=== PATIENT | male | born 1960 | race Caucasian/White ===

== ENCOUNTER 2020-02-09 06:42 | Inpatient (IN) | payer BC, OTHER ==
[2020-02-09] MEDS ORDERED: FAMOTIDINE INJ/PF 20 MG/2 ML SDV IV ONE (07:03)
[2020-02-09] MEDS ORDERED: PROCHLORPERAZINE EDISYLATE INJ 10 MG/2 ML VIAL IV ONE (07:04)
--- NOTE | 2020-02-09 07:11 | ER Document Report ---
ED General - General Chief Complaint: Chest Pain Stated Complaint: CHEST PAIN Time Seen by Provider: 02/09/20 06:55 Primary Care Provider: VALE FATIMA MD [HONORARY] - Follow up as needed - [facility] Notes: Chief complaint: Chest pain, nausea and vomiting History of present illness: 59-year-old male diabetic on insulin presents with 24-hour history of burning discomfort epigastric and central chest associated with multiple episodes of nausea/vomiting. He has been able unable to keep anything down. has been checking fingerstick glucose values at home and says that he is not been able to eat or drink anything but has maintained sugars "within normal range". Denies shortness of breath. He has been followed by car lot attendant but is never had a myocardial infarction. CAD risk factors include: Family history of CAD, diabetes mellitus, hypertension and hyperlipidemia. He is a non-smoker. Most recent hemoglobin A1c determination was 7.1 per his primary care physician. Patient had surgery in childhood for reimplantation of ureters bilaterally. Denies any current urinary symptoms. No other major surgery. HEART Score: HISTORY 1 ECG 1 AGE 1 RISK FACTORS 2 TROPONIN 0 TOTAL: 5 - Related Data Allergies/Adverse Reactions: No Known Allergies Allergy (Verified 05/31/12 14:53) Home Medications: Current medications include insulin, metoprolol XL 25 mg daily, metformin 500 mg twice daily, atorvastatin 20 mg daily, lisinopril 20 mg daily and aspirin 81 mg daily Past Medical History - General Information source: Patient, Relative, [facility] Records - Social History Smoking Status: Never Smoker Frequency of alcohol use: None Drug Abuse: None Family History: CAD - Past Medical History Cardiac Medical History: Denies: Hx Coronary Artery Disease, Hx Hypertension Pulmonary Medical History: Reports: None Denies: Hx Tuberculosis Neurological Medical History: Reports: None Endocrine Medical History: Reports: Hx Diabetes Mellitus Type 2 Renal/ Medical History: Reports: Other - See HPI GI Medical History: Reports: Hx Gastroesophageal Reflux Disease, Hx Hiatal Hernia - 10-15 yrs ago Traumatic Medical History: Reports: Hx Fractures - hand, ankle Past Surgical History: Reports: Other - 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 Denies: Hx Pacemaker, Hx Tonsillectomy - Immunizations Hx Diphtheria, Pertussis, Tetanus Vaccination: Yes - 05/31/12 Review of Systems - Review of Systems Notes: Constitutional: Negative for fever. HENT: Negative for sore throat. Eyes: Negative for visual changes. Cardiovascular: As per HPI. Respiratory: Negative for shortness of breath. Gastrointestinal: As per HPI. Genitourinary: Negative for dysuria. Musculoskeletal: Negative for back pain. Skin: Negative for rash. Neurological: Negative for headaches, focal weakness or numbness. 10 point ROS negative except as marked above and in HPI. Physical Exam - Vital signs Vitals: Resp BP Pulse Ox 19 163/83 H 97 02/09/20 07:00 02/09/20 07:00 02/09/20 07:00 - Notes Notes: GENERAL: Male patient of approximately stated age who is actively vomiting. SKIN: Pale and dry. Good turgor no rashes. HEAD: Normocephalic atraumatic. EYES: PERRLA. EOMI. Conjunctivae and sclerae clear. EARS: CANALS AND TMS CLEAR. NOSE: CLEAR. MOUTH: Dry oral mucosa. Good dentition. No stridor or edema. No drooling. NECK: Supple. No masses or thyromegaly. No adenopathy. Carotids 2+ without bruits. No JVD. BACK: Symmetrical without tenderness. CHEST: Respirations unlabored. Breath sounds clear and symmetrical. HEART: Regular rhythm. No murmur gallop or rub. ABDOMEN: Soft nontender without masses, organomegaly or rebound. Bowel sounds hyperactive. No bruits. GENITALIA: Deferred. EXTREMITIES: No edema. No calf tenderness. Cap refill less than 1.5 seconds. Dorsalis pedis and posterior tibial pulses 3+ and symmetrical. NEUROLOGICAL: GCS 15. Alert and oriented x3. Fluent speech. Cranial nerves II through XII intact. Sensorimotor and cerebellar normal. Normal tone. PSYCHIATRIC: Anxious affect. Course - Re-evaluation Re-evalutation: 02/09/20 10:29 Patient did not show any ST changes to suggest an acute PR but he had peaking of T waves suggestive of hyperkalemia. We subsequently got back his chemistry values found he was hypoglycemic with a blood sugar of 65. He also had findings of acute kidney injury with a creatinine in excess of 9 and a BUN in the 60s. His K was critically high at 8.1 his bicarb was less than 5. White count elevated in excess 21,000 with a left shift. No clear-cut source of sepsis. His level was approximately 16. Prince catheter was placed and patient had no obvious urinary retention. His urine is microscopically unremarkable but has been cultured. Chest x-ray showed no infiltrates. He has a benign abdomen to exam. A noncontrast CT of abdomen and pelvis suggested some inflammatory change around the right kidney. There was no obvious obstruction. Troponin normal. Critical hyperkalemia was treated with glucose insulin, bicarbonate IV and calcium gluconate IV. Consultation obtained from nephrology Dr. Pérez for emergency dialysis. Consultation obtained from Dr. Goodwin from general surgery for placement of dialysis access. Case findings reviewed with Dr. Morocho from ICU who accepts patient for admission at this time. Findings, clinical impression and plan of treatment have been discussed with patient/family. Understanding of current findings and recommendations has been acknowledged by them and there is agreement regarding disposition and follow-up. - Vital Signs Vital signs: Temp Pulse Resp BP Pulse Ox 93.8 F L 23 H 144/64 H 97 02/09/20 10:00 02/09/20 10:00 02/09/20 08:00 02/09/20 10:00 - Laboratory Result Diagrams: 02/09/20 07:05 02/09/20 08:53 Laboratory results interpreted by me: 02/09/20 02/09/20 02/09/20 07:05 07:05 08:53 WBC 23.6 H Seg Neuts % (Manual) 81 H Band Neutrophils % 1 L Lymphocytes % (Manual) 7 L Abs Neuts (Manual) 19.4 H Abs Monocytes (Manual) 2.4 H Potassium 8.0 H* Carbon Dioxide < 5 L* BUN 60 H Creatinine 9.92 H Est GFR ( Amer) 7 L Est GFR (MDRD) Non-Af 5 L Glucose 63 L Lactic Acid Magnesium 3.3 H Creatine Kinase 45 L CK-MB (CK-2) Urine Protein Urine Ketones Urine Blood Urine Ascorbic Acid 02/09/20 02/09/20 02/09/20 08:53 08:53 08:53 WBC Seg Neuts % (Manual) Band Neutrophils % Lymphocytes % (Manual) Abs Neuts (Manual) Abs Monocytes (Manual) Potassium Carbon Dioxide BUN Creatinine Est GFR ( Amer) Est GFR (MDRD) Non-Af Glucose Lactic Acid 18.0 H Magnesium Creatine Kinase CK-MB (CK-2) 5.53 H Urine Protein 100 H Urine Ketones 20 H Urine Blood SMALL H Urine Ascorbic Acid 20 H - EKG Interpretation by Me Additional EKG results interpreted by me: 02/09/20 07:14 Twelve-lead EKG reviewed by me contemporaneously: 0650 hrs. Indication for study: Chest pain/vomiting Rhythm: Sinus tachycardia Rate: 102 Intervals: Normal QRS axis: -[address]/T wave changes: No ST shift. Peaking of T waves suggestive of possible hyperkalemia. Comparison with prior tracing: None available Interpretation: Abnormal EKG with peaking of T waves and left anterior fascicular block 02/09/20 07:32 Repeat EKG #2 obtained at 0721 hrs. Twelve-lead EKG reviewed by me contemporaneously: 0721 hrs. Indication for study: Chest pain Rhythm: Sinus tachycardia Rate: 110 Intervals: Normal QRS axis: -[address]/T wave changes: Persistent peaking of T waves. No ST elevation or depression Comparison with prior tracing: Compared with earlier study from 0650 hrs. there is persistent peaking of the T waves and previously noted left anterior fascicul ar block. Interpretation: Abnormal EKG with peaking of T waves and left anterior fascicular block. Critical Care Note - Critical Care Note Total time excluding time spent on procedures (mins): 65 - Treatment of critical hyperkalemia. Nephrology consultation for urgency dialysis. Initiation of sepsis protocol. Discharge - Discharge Clinical Impression: Acute kidney injury, Hyperkalemia, sepsis Clinical Impression: (Ruled Out): Sepsis Condition: Critical Disposition: ADMITTED INPATIENT Admitting Provider: Bailee (General Assembler Installer) Unit Admitted: ICU Referrals: VALE FATIMA MD [HONORARY] - Follow up as needed
[2020-02-09] MEDS: NORMAL SALINE 1000 ML 1,000 ML IV PRN ×2 (07:15→09:34)
--- NOTE | 2020-02-09 07:27 | EKG REPORT ---
SEVERITY:- ABNORMAL ECG - SINUS TACHYCARDIA LEFT ANTERIOR FASCICULAR BLOCK : Confirmed by: Janes Mann MD 09-Feb-2020 07:27:04
[2020-02-09 07:43] LABS: HEMATOCRIT 45.5 % (37.9-51.0); MEAN CORPUSCULAR HEMOGLOBIN 31.8 pg (27.0-33.4); MEAN CORPUSCULAR HGB CONC 32.8 g/dL (32.0-36.0); MEAN CORPUSCULAR VOLUME 97 fl (80-97); PLATELET COUNT 412 10^3/uL (150-450); RED CELL DISTRIBUTION WIDTH 13.6 % (11.5-14.0); WHITE BLOOD COUNT 23.6 10^3/uL (4.0-10.5)
[2020-02-09] MEDS ORDERED: METOPROLOL TARTRATE PF/INJ 5 MG/5 ML SDV IV ONE (07:45)
--- NOTE | 2020-02-09 08:07 | RADIOLOGY REPORT (SQ) ---
EXAM DESCRIPTION: CHEST SINGLE VIEW IMAGES COMPLETED DATE/TIME: 02/09/2020 6:33 am REASON FOR STUDY: CP COMPARISON: None. EXAM PARAMETERS: NUMBER OF VIEWS: One view. TECHNIQUE: Single frontal radiographic view of the chest acquired. RADIATION DOSE: NA LIMITATIONS: None. FINDINGS: LUNGS AND PLEURA: No opacities, masses or pneumothorax. No pleural effusion. MEDIASTINUM AND HILAR STRUCTURES: No masses. Contour normal. HEART AND VASCULAR STRUCTURES: Heart normal in size. Normal vasculature. BONES: No acute findings. HARDWARE: None in the chest. OTHER: No other significant finding. IMPRESSION: NO ACUTE RADIOGRAPHIC FINDING IN THE CHEST. TECHNICAL DOCUMENTATION: JOB ID: [id number] 2010 [employer]- All Rights Reserved Reading location - IP/workstation name: [email or web address]
[2020-02-09 08:12] LABS: ABSOLUTE LYMPHOCYTES# (MANUAL) 1.9 10^3/uL (0.5-4.7); ABSOLUTE MONOCYTES # (MANUAL) 2.4 10^3/uL (0.1-1.4); BAND NEUTROPHILS % (MANUAL) 1 % (3-5); BASOPHILS % (MANUAL) 0 % (0-2); EOSINOPHILS % (MANUAL) 0 % (0-6); INTERNATIONAL RATION (INR) 1.18; LYMPHOCYTES % (MANUAL) 7 % (13-45); MONOCYTES % (MANUAL) 10 % (3-13); PARTIAL THROMBOPLASTIN TIME 27.8 SEC (23.5-35.8); PROTHROMBIN TIME 15.2 SEC (11.4-15.4); SEGMENTED NEUTROPHILS % (MAN) 81 % (42-78); TOTAL CELLS COUNTED 100
[2020-02-09 08:13] LABS: PAPPENHEIMER BODIES PRESENT; POLYCHROMASIA SLIGHT
[2020-02-09 08:14] LABS: PLATELET COMMENT ADEQUATE; PLATELET LARGE PRESENT
[2020-02-09] MEDS ORDERED: MORPHINE SULFATE 10 MG/ML INJ IV ONE (08:24)
[2020-02-09] MEDS ORDERED: IMIPENEM/CILASTATIN SODIUM INJ 500 MG VIAL IV ONE (08:40)
[2020-02-09 09:33] LABS: ALBUMIN 4.2 g/dL (3.5-5.0); ALKALINE PHOSPHATASE 47 U/L (38-126); ASPARTATE AMINO TRANSFERASE 38 U/L (17-59); BILIRUBIN,DIRECT 0.4 mg/dL (0.0-0.4); BILIRUBIN,TOTAL 0.6 mg/dL (0.2-1.3); BLOOD UREA NITROGEN 60 mg/dL (7-20); CALCIUM 9.6 mg/dL (8.4-10.2); CHLORIDE 98 mmol/L (98-107); CREATINE KINASE 45 U/L (55-170); TOTAL PROTEIN 6.5 g/dL (6.3-8.2)
[2020-02-09 09:34] LABS: APPEARANCE,URINE SLIGHTLY-CLOUDY; BILIRUBIN,URINE NEGATIVE (NEGATIVE); COLOR,URINE YELLOW; GLUCOSE, URINE NEGATIVE (NEGATIVE); KETONES,URINE 20 mg/dL (NEGATIVE); PROTEIN,URINE 100 mg/dL (NEGATIVE); URINE SPECIFIC GRAVITY 1.011; UROBILINOGEN,URINE NEGATIVE mg/dL (<2.0)
--- NOTE | 2020-02-09 09:37 | RADIOLOGY REPORT (SQ) ---
EXAM DESCRIPTION: CT ABD/PELVIS NO ORAL OR IV IMAGES COMPLETED DATE/TIME: 02/09/2020 9:15 am REASON FOR STUDY: ARF COMPARISON: None. TECHNIQUE: CT scan of the abdomen and pelvis performed without intravenous or oral contrast. Images reviewed with lung, soft tissue, and bone windows. Reconstructed coronal and sagittal MPR images revi ewed. All images stored on PACS. All CT scanners at this facility use dose modulation, iterative reconstruction, and/or weight based d osing when appropriate to reduce radiation dose to as low as reasonably achievable (ALARA). [facility]: Dose Right [facility]: CareDose [facility]: Dose Right [facility]: Teradose 4D [facility]: Smart [employer] Software RADIATION DOSE: CT Rad equipment meets quality standard of care and radiation dose reduction techniq ues were employed. CTDIvol: 11.2 mGy. DLP: 666 mGy-cm.mGy. LIMITATIONS: None. FINDINGS: LOWER CHEST: Right lung base atelectasis likely due to discomfort with deep inspiration. NON-CONTRASTED LIVER, SPLEEN, ADRENALS: Evaluation limited by lack of IV contrast. No identified sign ificant masses. PANCREAS: No masses. No peripancreatic inflammatory changes. GALLBLADDER: No identified stones by CT criteria. No inflammatory changes to suggest cholecystitis. RIGHT KIDNEY AND URETER: Asymmetric perinephric fat stranding. No suspicious masses. Assessment limi michelle by lack of IV contrast. Punctate hyperdensities may represent tiny nonobstructing nephroliths. No hydronephrosis or hydroureter. LEFT KIDNEY AND URETER: No suspicious masses. Assessment limited by lack of IV contrast. No signifi cant calcifications. No hydronephrosis or hydroureter. AORTA AND RETROPERITONEUM: No aneurysm. No retroperitoneal masses or adenopathy. BOWEL AND PERITONEAL CAVITY: No obvious masses or inflammatory changes. No obstruction. Incidental note is made of fatty mural stratification involving predominantly the transverse and ascending colon , which may be related to chronic inflammatory bowel disease. APPENDIX: Normal. PELVIS, BLADDER, AND ABDOMINAL WALL:The bladder is decompressed with a Prince catheter. No pelvic mas ses or lymphadenopathy. BONES: No significant findings. OTHER: No other significant finding. IMPRESSION: Right renal findings are nonspecific, and may represent a recently passed stone. Pyelon ephritis may have a similar appearance. Other chronic and incidental findings as detailed above. COMMENT: Quality ID # [id number]: Final reports with documentation of one or more dose reduction techniques (e.g., Automated exposure control, adjustment of the mA and/or kV according to patient size, use of iterative reconstruction technique) TECHNICAL DOCUMENTATION: JOB ID: [id number] 2010 [employer]- All Rights Reserved Reading location - IP/workstation name: [email or web address]-
[2020-02-09] MEDS ORDERED: DEXTROSE 50%-WATER 25 GM/50 ML DISP.SYRIN IV ONE (09:43)
[2020-02-09 09:44] LABS: CARBON DIOXIDE < 5 mmol/L (22-30); GLUCOSE 63 mg/dL (75-110)
[2020-02-09] MEDS ORDERED: INSULIN REG, HUMAN 100 UNIT/ML 3 ML VIAL (PYX) IV ONE (09:44)
[2020-02-09] MEDS ORDERED: CALCIUM GLUCONATE 1000 MG/10 ML INJ IV ONE (09:44)
[2020-02-09 09:45] LABS: CREATINE KINASE MB 5.53 ng/mL (<4.55); TROPONIN I < 0.012 ng/mL
[2020-02-09] MEDS ORDERED: SODIUM BICARBONATE 8.4% INJ 50 MEQ/50 ML DISP.SYRIN IV ONE (09:45)
[2020-02-09] MEDS ORDERED: HEPARIN SOD (PORCINE) 1,000 UNIT/ML 10 ML VIAL IV PRN (10:15)
[2020-02-09] MEDS ORDERED: NORMAL SALINE 1000 ML 1,000 ML IV PRN ×2 (10:15→12:48)
[2020-02-09 10:32] LABS: VENOUS BLOOD BASE EXCESS -28.5 mmol/L; VENOUS BLOOD HCO3 5.7 mmol/L (20-32); VENOUS BLOOD PCO2 36.2 mmHg (35-63)
[2020-02-09 10:35] LABS: VENOUS BLOOD PH 6.81 (7.30-7.42)
--- NOTE | 2020-02-09 10:54 | CRITICAL CARE ADMISSION REPORT ---
HPI Date:: 02/09/20 Time:: 10:00 Reason for ICU Reason:: Hyperkalemia, need for emergant HD. Admission Date/Time & PCP: Admission Date/Time: Primary Care Provider: GABRIELA WINTERS HPI: This patient is a 59 yo man who has been sick for about 36 hours with a likely GI virus. Not wanting to eat or drink during that time. Very dehydrated. History obtained from:: Patient, , Dr. Ashton. - Diagnosis/Plan (1) ARF (acute renal failure) Qualifiers: Acute renal failure type: with acute tubular necrosis Qualified Code(s): N17.0 - Acute kidney failure with tubular necrosis Is this a current diagnosis for this admission?: Yes Plan: His Cr is 9. He likely has some CKD from DM. This with dehydration has put him in renal failure. He is to receive emergant HD. (2) Hyperkalemia, diminished renal excretion Is this a current diagnosis for this admission?: Yes Plan: Level is 8.0. His EKG had mild elevated T-waves. Given bicarb, calcium. Again needs HD. (3) Acidosis Is this a current diagnosis for this admission?: Yes Plan: His bicarb is < 5. His breathing is somewhat heavy but not kussmall. (4) Dehydration Is this a current diagnosis for this admission?: Yes Plan: He is getting his second liter. He still has some mottling and dry mouth. Plan Summary: Place in ICU, place catheter and emergant dialysis. Past Medical History Cardiac Medical History: Denies: Coronary Artery Disease, Hypertension Pulmonary Medical History: Reports: None Denies: Tuberculosis Neurological Medical History: Reports: None Endocrine Medical History: Reports: Diabetes Mellitus Type 2 Renal/ Medical History: Reports: Other - See HPI GI Medical History: Reports: Gastroesophageal Reflux Disease, Hiatal Hernia - 10-15 yrs ago Past Surgical History Past Surgical History: Reports: Other - Bilateral ureter reimplantation in [facility] Denies: Pacemaker, Tonsillectomy Social/Family History - Social History Smoking Status: Never Smoker Hx Recreational Drug Use: No Hx Prescription Drug Abuse: No - Medication/Allergies Home Medications: Glimepiride [Amaryl 4 mg Tablet] 4 mg PO BID 05/31/12 Lisinopril [Prinivil 20 mg Tablet] 20 mg PO QHS 01/21/13 Metformin HCl [Glucophage 1000 mg Tablet] 1,000 mg PO BID 05/31/12 Amox Tr/Potassium Clavulanate [Augmentin "500" Tablet] 1 tab PO Q8 #0 tablet 06/01/12 Allergies/Adverse Reactions: No Known Allergies Allergy (Verified 05/31/12 14:53) Review of Systems Constitutional: PRESENT: fatigue, weakness Nose, Mouth, and Throat: PRESENT: as per HPI Cardiovascular: PRESENT: as per HPI Respiratory: PRESENT: as per HPI, other - Some heavy breathing from acidosis. Gastrointestinal: PRESENT: as per HPI Musculoskeletal: PRESENT: as per HPI Integumentary: ABSENT: rash, wounds Neurological: ABSENT: abnormal gait, abnormal speech, confusion, dizziness, focal weakness, syncope Psychiatric: ABSENT: anxiety, depression, homidical ideation, suicidal ideation Endocrine: ABSENT: cold intolerance, heat intolerance, polydipsia, polyuria Physical Exam Vital Signs: Temp Pulse Resp BP Pulse Ox 93.8 F L 23 H 144/64 H 97 02/09/20 10:00 02/09/20 10:00 02/09/20 08:00 02/09/20 10:00 Intake & Output 02/08/20 02/09/20 02/10/20 06:59 06:59 06:59 Intake Total 1000 Balance 1000 Weight 92.986 kg Weight/Height Weight 92.986 kg Height 6 ft 4 in General appearance: PRESENT: no acute distress Head exam: PRESENT: atraumatic, normocephalic Eye exam: PRESENT: conjunctiva pink, EOMI, PERRLA. ABSENT: scleral icterus Ear exam: PRESENT: normal external ear exam Mouth exam: PRESENT: dry mucosa Respiratory exam: PRESENT: clear to auscultation [place], tachypnea. ABSENT: rales, rhonchi, wheezes Cardiovascular exam: PRESENT: RRR, tachycardia. ABSENT: diastolic murmur, rubs, systolic murmur GI/Abdominal exam: PRESENT: normal bowel sounds, soft. ABSENT: distended, guarding, mass, organolmegaly, rebound, tenderness Rectal exam: PRESENT: deferred Gentrourinary exam: PRESENT: indwelling catheter Extremities exam: PRESENT: full ROM. ABSENT: calf tenderness, clubbing, pedal edema Musculoskeletal exam: PRESENT: normal inspection Neurological exam: PRESENT: alert, awake, oriented to person, oriented to place, oriented to time, oriented to situation, CN II-XII grossly intact. ABSENT: anais r sensory deficit Skin exam: PRESENT: mottled, other - Mottled on elbows, knees and feet. Tubes/Lines: PRESENT: Dialysis catheter Laboratory/Radiographs Laboratory Results: 02/09/20 07:05 02/09/20 08:53 02/09/20 02/09/20 02/09/20 07:05 07:05 07:05 WBC 23.6 H RBC 4.70 Hgb 15.0 Hct 45.5 MCV 97 MCH 31.8 MCHC 32.8 RDW 13.6 Plt Count 412 Seg Neutrophils % Not Reportable Sodium Cancelled Potassium Cancelled Chloride Cancelled Carbon Dioxide Cancelled Anion Gap Cancelled BUN Cancelled Creatinine Cancelled Est GFR ( Amer) Cancelled Est GFR (Non-Af Amer) Cancelled Glucose Cancelled Lactic Acid Calcium Cancelled Magnesium 3.3 H Total Bilirubin Cancelled AST Cancelled Alkaline Phosphatase Cancelled Total Protein Cancelled Albumin Cancelled Urine Color Urine Appearance Urine pH Ur Specific [place] Urine Protein Urine Glucose (UA) Urine Ketones Urine Blood Urine RBC (Auto) 02/09/20 02/09/20 02/09/20 08:53 08:53 08:53 WBC RBC Hgb Hct MCV MCH MCHC RDW Plt Count Seg Neutrophils % Sodium 143.2 Potassium 8.0 H* Chloride 98 Carbon Dioxide < 5 L* Anion Gap Not Reportable BUN 60 H Creatinine 9.92 H Est GFR ( Amer) 7 L Est GFR (Non-Af Amer) Glucose 63 L Lactic Acid 18.0 H Calcium 9.6 Magnesium Total Bilirubin 0.6 AST 38 Alkaline Phosphatase 47 Total Protein 6.5 Albumin 4.2 Urine Color YELLOW Urine Appearance SLIGHTLY-CLOUDY Urine pH 5.0 Ur Specific [place] 1.011 Urine Protein 100 H Urine Glucose (UA) NEGATIVE Urine Ketones 20 H Urine Blood SMALL H Urine RBC (Auto) 1 02/09/20 02/09/20 02/09/20 07:05 07:05 08:53 Creatine Kinase Cancelled 45 L CK-MB (CK-2) Cancelled Troponin I Cancelled 02/09/20 08:53 Creatine Kinase CK-MB (CK-2) 5.53 H Troponin I < 0.012 Impressions: Chest X-Ray 02/09/20 07:15 IMPRESSION: NO ACUTE RADIOGRAPHIC FINDING IN THE CHEST. Abdomen/Pelvis CT 02/09/20 08:26 IMPRESSION: Right renal findings are nonspecific, and may represent a recently passed stone. Pyelonephritis may have a similar appearance. Other chronic and incidental findings as detailed above. EKG: SR mild peaked Ts. All labs, radiographs, diagnostic studies and EKGs were personally reviewed: Yes In addition, reports of radiographic and diagnostic studies were read: Yes Critical Time Critical Time (minutes): 40 -: The care of a critically ill patient is dynamic. This note represents a static moment in the admission process. Orders and treatments may be given simultaneously and urgently, and time is not key account representative of the treatment process. This patient requires Critical Care secondary to life threatening organ or limb dysfunction. Without Critical Care services, the patient is at risk for increased mortality and morbidity.
[2020-02-09] MEDS ORDERED: DEXTROSE 40% GEL 15 GM TUBE PO PRN ×2 (11:01)
[2020-02-09] MEDS ORDERED: GLUCAGON,HUMAN RECOMB 1 MG INJ IM PRN (11:01)
[2020-02-09] MEDS ORDERED: DEXTROSE 50%-WATER 25 GM/50 ML DISP.SYRIN IV PRN ×2 (11:01)
[2020-02-09] MEDS ORDERED: LIDOCAINE 1% INJ-PF (10 MG/ML) 30 ML SDV ONE (11:52)
--- NOTE | 2020-02-09 12:24 | EKG REPORT ---
SEVERITY:- ABNORMAL ECG - SINUS TACHYCARDIA LEFT ANTERIOR FASCICULAR BLOCK NONSPECIFIC ST-T CHANGES LATERAL LEADS : Confirmed by: Janes Mann MD 09-Feb-2020 12:23:14
--- NOTE | 2020-02-09 12:25 | EKG REPORT ---
SEVERITY:- ABNORMAL ECG - SINUS TACHYCARDIA LEFT ANTERIOR FASCICULAR BLOCK NONSPECIFIC ST-T CHANGES LATERAL LEADS : Confirmed by: Janes Mann MD 09-Feb-2020 12:24:00
--- NOTE | 2020-02-09 12:30 | PDOC CONSULTATION ---
Consultation Consult Date: 02/09/20 Provider Consulted: CINDY GARDUNO Consult reason:: Need for hemodialysis catheter History of Present Illness Admission Date/PCP: 02/09/20 10:43 NO LOCALMD History of Present Illness: OSEAS AYERS III is a 59 year old male in need of urgent placement of hemo dialysis catheter for urgent hemodialysis as requested by the permit coordinator. Past Medical History Cardiac Medical History: Reports: Hyperlipidema, Other - Tachycardia Denies: Coronary Artery Disease, Hypertension Pulmonary Medical History: Reports: None, Other - Lung nodules Denies: Tuberculosis EENT Medical History: Reports: None, Cataracts, Eyes, Ears, Nose, Throat, Other Neurological Medical History: Reports: None Endocrine Medical History: Reports: Diabetes Mellitus Type 2 Renal/ Medical History: Reports: Other - Vesicoureteral reflux GI Medical History: Reports: Gastroesophageal Reflux Disease, Hiatal Hernia - 10-15 yrs ago, Other - Fatty liver Hematology: Reports: Other Past Surgical History Past Surgical History: Reports: Herniorrhaphy - In infancy, Other - 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 Denies: Pacemaker, Tonsillectomy Social History Lives with: Spouse/Significant other Smoking Status: Former Smoker - Smoked for 30 years and quit 5 years ago Electronic Cigarette use?: No Frequency of Alcohol Use: None Hx Recreational Drug Use: No Hx Prescription Drug Abuse: No Family History Family History: None, CAD Parental Family History Reviewed: No Children Family History Reviewed: No Sibling(s) Family History Reviewed.: No Medication/Allergy Home Medications: Glimepiride [Amaryl 4 mg Tablet] 4 mg PO BID 05/31/12 Lisinopril [Prinivil 20 mg Tablet] 20 mg PO QHS 05/31/12 Metformin HCl [Glucophage 1000 mg Tablet] 1,000 mg PO BID 05/31/12 Amox Tr/Potassium Clavulanate [Augmentin "500" Tablet] 1 tab PO Q8 #0 tablet 06/01/12 Allergies/Adverse Reactions: No Known Allergies Allergy (Verified 02/09/20 11:21) Physical Exam Vital Signs: Temp Pulse Resp BP Pulse Ox 94.5 F L 23 H 116/61 94 02/09/20 11:01 02/09/20 11:01 02/09/20 11:00 02/09/20 11:01 Intake & Output 09/02/09/20 02/10/20 06:59 06:59 06:59 Intake Total 1999 Output Total 250 Balance 1750 Weight 92.986 kg General appearance: PRESENT: mild distress, thin, well-developed Head exam: PRESENT: atraumatic Mouth exam: PRESENT: neck supple Neck exam: PRESENT: full ROM Respiratory exam: PRESENT: clear to auscultation [place] Cardiovascular exam: PRESENT: RRR GI/Abdominal exam: PRESENT: hypoactive bowel sounds, soft Rectal exam: PRESENT: deferred Musculoskeletal exam: PRESENT: full ROM, normal inspection - Of the right and left groin Results Laboratory Results: 02/09/20 07:05 02/09/20 08:53 02/09/20 02/09/20 02/09/20 07:05 07:05 07:05 WBC 23.6 H RBC 4.70 Hgb 15.0 Hct 45.5 MCV 97 MCH 31.8 MCHC 32.8 RDW 13.6 Plt Count 412 Seg Neutrophils % Not Reportable VBG pH VBG pCO2 VBG HCO3 VBG Base Excess Sodium Cancelled Potassium Cancelled Chloride Cancelled Carbon Dioxide Cancelled Anion Gap Cancelled BUN Cancelled Creatinine Cancelled Est GFR ( Amer) Cancelled Est GFR (Non-Af Amer) Cancelled Glucose Cancelled Lactic Acid Calcium Cancelled Magnesium 3.3 H Total Bilirubin Cancelled AST Cancelled Alkaline Phosphatase Cancelled Total Protein Cancelled Albumin Cancelled Urine Color Urine Appearance Urine pH Ur Specific [place] Urine Protein Urine Glucose (UA) Urine Ketones Urine Blood Urine RBC (Auto) 02/09/20 02/09/20 02/09/20 08:53 08:53 08:53 WBC RBC Hgb Hct MCV MCH MCHC RDW Plt Count Seg Neutrophils % VBG pH VBG pCO2 VBG HCO3 VBG Base Excess Sodium 143.2 Potassium 8.0 H* Chloride 98 Carbon Dioxide < 5 L* Anion Gap Not Reportable BUN 60 H Creatinine 9.92 H Est GFR ( Amer) 7 L Est GFR (Non-Af Amer) Glucose 63 L Lactic Acid 18.0 H Calcium 9.6 Magnesium Total Bilirubin 0.6 AST 38 Alkaline Phosphatase 47 Total Protein 6.5 Albumin 4.2 Urine Color YELLOW Urine Appearance SLIGHTLY-CLOUDY Urine pH 5.0 Ur Specific [place] 1.011 Urine Protein 100 H Urine Glucose (UA) NEGATIVE Urine Ketones 20 H Urine Blood SMALL H Urine RBC (Auto) 1 10/01/20 10:02 WBC RBC Hgb Hct MCV MCH MCHC RDW Plt Count Seg Neutrophils % VBG pH 6.81 L* VBG pCO2 36.2 VBG HCO3 5.7 L VBG Base Excess -28.5 Sodium Potassium Chloride Carbon Dioxide Anion Gap BUN Creatinine Est GFR ( Amer) Est GFR (Non-Af Amer) Glucose Lactic Acid Calcium Magnesium Total Bilirubin AST Alkaline Phosphatase Total Protein Albumin Urine Color Urine Appearance Urine pH Ur Specific [place] Urine Protein Urine Glucose (UA) Urine Ketones Urine Blood Urine RBC (Auto) 02/09/20 02/09/20 02/09/20 07:05 07:05 08:53 Creatine Kinase Cancelled 45 L CK-MB (CK-2) Cancelled Troponin I Cancelled 02/09/20 08:53 Creatine Kinase CK-MB (CK-2) 5.53 H Troponin I < 0.012 Impressions: Chest X-Ray 02/09/20 07:15 IMPRESSION: NO ACUTE RADIOGRAPHIC FINDING IN THE CHEST. Abdomen/Pelvis CT 02/09/20 08:26 IMPRESSION: Right renal findings are nonspecific, and may represent a recently passed stone. Pyelonephritis may have a similar appearance. Other chronic and incidental findings as detailed above. Assessment & Plan - Plan Summary Plan Summary: Assessment: Acute kidney failure Need for emergent placement of a hemodialysis catheter Plan: Plan placement of groin femoral vein hemodialysis catheter at bedside in the ICU Procedure, risks, benefits, complications have been explained to the patient, he understands all the above, his questions were answered, he decides to proceed.
--- NOTE | 2020-02-09 12:35 | Operative Report ---
Operative Report DATE OF SURGERY: 02/09/20 PREOPERATIVE DIAGNOSIS: Acute renal failure;. Need for placement of hemodialys is catheter POSTOPERATIVE DIAGNOSIS: Same OPERATION: Placement of right femoral vein trialysis catheter SURGEON: CINDY GARDUNO ANESTHESIA: Local - 20 mL's 1% lidocaine without epinephrine TISSUE REMOVED OR ALTERED: Not applicable COMPLICATIONS: None ESTIMATED BLOOD LOSS: Negligible INTRAOPERATIVE FINDINGS: Easy approach of the right common femoral vein PROCEDURE: The procedure was done at bedside: The patient was placed in a supine position, the patient right groin was prepped and draped in the usual fashion. The right femoral vein was palpated and the area just medial to eat was infiltrated with lidocaine, a 16-gauge needle was then used to cannulate the right common femoral vein without difficulty with good blood return; a guidewire was inserted thro ugh the needle into the central vein without difficulty the needle was removed. The insertion point of the guidewire was enlarged with a #11 blade and a tissue dilator which was then removed. A triple-lumen catheter was inserted without difficulty over the guidewire into the central vein without difficulty up to 30 cm, the guidewire was removed. Each port was aspirated and flushed with normal saline without difficulty. The catheter was secured to the skin with 3-0 nylon sutures and sterile dressing applied. The patient tolerated the procedure well and hemodialysis was started shortly after.
--- NOTE | 2020-02-09 12:46 | PDOC CONSULTATION ---
Consultation Consult Date: 02/09/20 Provider Consulted: JUAN LUIS HERNANDEZ Consult reason:: RASHMI, hyperkalemia History of Present Illness Admission Date/PCP: 02/09/20 10:43 NO LOCALMD History of Present Illness: OSEAS AYERS III is a 59 year old male with history of diabetes mellitus type 2 complicated by diabetic neuropathy, hypertension, history of vesicoureteral reflux with reimplantation of bilateral ureters at age [age] years old, chronic kidney disease stage III, fatty liver, tachycardia who presented to the emergency room with epigastric pain burning with radiation to the center of the chest, nausea and vomiting for the last 36 hours. Patient states that he was started on Ozempic about 9 weeks ago for his diabetes. He took a dose on Thursday and started to feels some queasiness in his stomach. By Thursday he said his oral intake only includes some Pepsi, Portuguese fries and cookies. Yesterday started having nausea and vomiting and unable to take anything by mouth. He also started this burning sensation in epigastric area with radiation to the chest. He denies any chest pains, fever, nor cough. He did say he has some tightness in the chest with the burning sensation. He feels very weak. His throat is very dry and there is some discomfort. He also mentioned that he has been taking ibuprofen plus hydrocodone for a tooth ache. He was taking ibuprofen at thousand milligrams 3 times a day for 10 days which he stopped a week ago. Initial evaluation in the emergency room revealed a potassium of 8.0, BUN of 60, creatinine of 9.92 and bicarbonate less than 5. He has a WBC count of 22.6. Chest x-ray is negative. Abdominal CT showed that on the right kidney there was perinephric fat stranding and tiny nonobstructing nephroliths. Both kidneys have no hydronephrosis no hydroureter. His venous blood gas showed a pH of 6.81, with bicarbonate of 5.7 and PCO2 36.2. His lactic acid was 18. Magnesium also elevated at 3.3. Urinalysis showed protein of 100, ketones of 20, small blood, negative nitrite and leukocyte esterase, RBC of 1, WBC of 2 and ascorbic acid of 20. He was tested for COVID-19 and still currently pending. In the emergency room he was given a liter of IV fluid bolus, an amp of calcium gluconate, regular insulin and D50 50, an amp of sodium bicarbonate and a dose of imipenem. I was then called for consultation. I did get some records from our office in [place] and found that the patient has actually seen, Dr. Sanabria back in March 2017 once. At that time he has a creatinine of 1.8 with EGFR 50. Impression was possible diabetic nephropathy due to uncontrolled diabetes mellitus. Apparently he did not follow through. He said his primary care physician has been telling him that he still continues to have abnormal kidney function. His last blood work was 6 months ago. He denies any episode of acute kidney injury requiring hemodialysis in the past. He denies history of hepatitis, recent procedure, any intake of any herbal med ications [id number], no recent hospitalizations and denies any known family history of kidney disease. He said his blood sugar is improving and the last A1c was 7.1. Significantly he is taking lisinopril, metformin, and Ozempic. 12:42 PM. I am seeing him during initiation of hemodialysis. He is currently stable with a little bit lowish blood pressure to start with. He is going to need some IV fluids. We will not do any ultrafiltration. Past Medical History Cardiac Medical History: Reports: Hyperlipidemia, Hypertension-primary, Other - Tachycardia Pulmonary Medical History: Reports: Other - Lung nodules EENT Medical History: Reports: None, Cataracts, Eyes, Ears, Nose, Throat, Other Neurological Medical History: Reports: None Endocrine Medical History: Reports: Diabetes Mellitus Type 2 Complications of Diabetes: Reports: Autonomic Neuropathy, Nephropathy Renal/ Medical History: Reports: Chronic Kidney Disease Stage III, Other - Vesicoureteral reflux GI Medical History: Reports: Gastroesophageal Reflux Disease, Hiatal Hernia - 10-15 yrs ago, Other - Fatty liver Past Surgical History Past Surgical History: Reports: Herniorrhaphy - In infancy, Other - 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 Social History Information Source: Patient Lives with: Spouse/Significant other Smoking Status: Former Smoker - Smoked for 30 years and quit 5 years ago Electronic Cigarette use?: No Frequency of Alcohol Use: None Hx Recreational Drug Use: No Hx Prescription Drug Abuse: No Family History Family History: DM - Mother and brother, Malignancy - Non-Hodgkin's lymphoma on his father, , Other - Brother has VUR Parental Family History Reviewed: Yes Children Family History Reviewed: Yes Sibling(s) Family History Reviewed.: Yes Medication/Allergy Home Medications: Glimepiride [Amaryl 4 mg Tablet] 4 mg PO BID 05/31/12 Lisinopril [Prinivil 20 mg Tablet] 20 mg PO QHS 05/31/12 Metformin HCl [Glucophage 1000 mg Tablet] 1,000 mg PO BID 05/31/12 Amox Tr/Potassium Clavulanate [Augmentin "500" Tablet] 1 tab PO Q8 #0 tablet 06/01/12 Allergies/Adverse Reactions: No Known Allergies Allergy (Verified 02/09/20 11:21) Review of Systems All systems: reviewed and no additional remarkable complaints except as stated Review of Systems: Constitutional: ABSENT: chills, fever(s), headache(s), weight gain, weight loss; admits fatigue and weakness Eyes: ABSENT: visual disturbances Ears: ABSENT: hearing changes Cardiovascular: ABSENT: Dyspnea on exertion, edema, orthropnea, palpitations; admits some chest tightness Respiratory: ABSENT: cough, dyspnea, hemoptysis Gastrointestinal: ABSENT: abdominal pain, constipation, diarrhea, hematemesis, hematochezia; admits nausea, vomiting and epigastric burning sensation with radiation to the chest Genitourinary: ABSENT: dysuria, hematuria Musculoskeletal: ABSENT: joint swelling Integumentary: ABSENT: rash, wounds Neurological: ABSENT: abnormal gait, abnormal speech, confusion, dizziness, focal weakness, numbness, syncope Psychiatric: ABSENT: anxiety, depression Endocrine: ABSENT: cold intolerance, heat intolerance, polydipsia, polyuria Hematologic/Lymphatic: ABSENT: easy bleeding, easy bruising, lymphadenopathy Physical Exam Vital Signs: Temp Pulse Resp BP Pulse Ox 94.5 F L 23 H 116/61 94 02/09/20 11:01 02/09/20 11:01 02/09/20 11:00 02/09/20 11:01 Intake & Output 02/08/20 02/09/20 02/10/20 06:59 06:59 06:59 Intake Total 2000 Output Total 250 Balance 1750 Weight 92.986 kg Vitals during initiation of hemodialysis. Blood pressure 102/55, heart rate of 99. Exam: General appearance: No acute distress, cooperative, well-developed, well- nourished Head exam: PRESENT: atraumatic, normocephalic Eye exam: PRESENT: Conjunctiva [place], EOMI, PERRLA. ABSENT: conjunctival injection, scleral icterus Mouth exam: PRESENT: moist, neck supple, tongue midline, mouth is very dry Neck exam: PRESENT: full ROM. ABSENT: carotid bruit, JVD, lymphadenopathy, thyromegaly Respiratory exam: PRESENT: clear to auscultation bilaterally. ABSENT: rales, rhonchi, stridor, wheezes Cardiovascular exam: PRESENT: RRR, +S1, +S2. ABSENT: systolic murmur Pulses: PRESENT: normal radial pulses, normal dorsalis pedis pulses GI/Abdominal exam: PRESENT: normal bowel sounds, soft. ABSENT: guarding, mass, tenderness Rectal exam: Deferred Extremities exam: PRESENT: full ROM. ABSENT: calf tenderness, pedal edema Musculoskeletal: PRESENT: full ROM. ABSENT: deformity Neurological exam: PRESENT: alert, Awake, Oriented to person, Oriented to place, Oriented to time, reflexes normal, CN II-XII grossly intact. ABSENT: motor sensory deficit Psychiatric exam: PRESENT: appropriate affect, normal mood. ABSENT: homicidal ideation, suicidal ideation Skin exam: PRESENT: intact, dry, warm. ABSENT: rash Results Laboratory Results: 02/09/20 07:05 02/09/20 08:53 02/09/20 02/09/20 02/09/20 07:05 07:05 07:05 WBC 23.6 H RBC 4.70 Hgb 15.0 Hct 45.5 MCV 97 MCH 31.8 MCHC 32.8 RDW 13.6 Plt Count 412 Seg Neutrophils % Not Reportable VBG pH VBG pCO2 VBG HCO3 VBG Base Excess Sodium Cancelled Potassium Cancelled Chloride Cancelled Carbon Dioxide Cancelled Anion Gap Cancelled BUN Cancelled Creatinine Cancelled Est GFR ( Amer) Cancelled Est GFR (Non-Af Amer) Cancelled Glucose Cancelled Lactic Acid Calcium Cancelled Magnesium 3.3 H Total Bilirubin Cancelled AST Cancelled Alkaline Phosphatase Cancelled Total Protein Cancelled Albumin Cancelled Urine Color Urine Appearance Urine pH Ur Specific [place] Urine Protein Urine Glucose (UA) Urine Ketones Urine Blood Urine RBC (Auto) 02/09/20 02/09/20 02/09/20 08:53 08:53 08:53 WBC RBC Hgb Hct MCV MCH MCHC RDW Plt Count Seg Neutrophils % VBG pH VBG pCO2 VBG HCO3 VBG Base Excess Sodium 143.2 Potassium 8.0 H* Chloride 98 Carbon Dioxide < 5 L* Anion Gap Not Reportable BUN 60 H Creatinine 9.92 H Est GFR ( Amer) 7 L Est GFR (Non-Af Amer) Glucose 63 L Lactic Acid 18.0 H Calcium 9.6 Magnesium Total Bilirubin 0.6 AST 38 Alkaline Phosphatase 47 Total Protein 6.5 Albumin 4.2 Urine Color YELLOW Urine Appearance SLIGHTLY-CLOUDY Urine pH 5.0 Ur Specific [place] 1.011 Urine Protein 100 H Urine Glucose (UA) NEGATIVE Urine Ketones 20 H Urine Blood SMALL H Urine RBC (Auto) 1 02/09/20 10:02 WBC RBC Hgb Hct MCV MCH MCHC RDW Plt Count Seg Neutrophils % VBG pH 6.81 L* VBG pCO2 36.2 VBG HCO3 5.7 L VBG Base Excess -28.5 Sodium Potassium Chloride Carbon Dioxide Anion Gap BUN Creatinine Est GFR ( Amer) Est GFR (Non-Af Amer) Glucose Lactic Acid Calcium Magnesium Total Bilirubin AST Alkaline Phosphatase Total Protein Albumin Urine Color Urine Appearance Urine pH Ur Specific [place] Urine Protein Urine Glucose (UA) Urine Ketones Urine Blood Urine RBC (Auto) 02/09/20 02/09/20 02/09/20 07:05 07:05 08:53 Creatine Kinase Cancelled 45 L CK-MB (CK-2) Cancelled Troponin I Cancelled 02/09/20 08:53 Creatine Kinase CK-MB (CK-2) 5.53 H Troponin I < 0.012 Impressions: Chest X-Ray 02/09/20 07:15 IMPRESSION: NO ACUTE RADIOGRAPHIC FINDING IN THE CHEST. Abdomen/Pelvis CT 02/09/20 08:26 IMPRESSION: Right renal findings are nonspecific, and may represent a recently passed stone. Pyelonephritis may have a similar appearance. Other chronic and incidental findings as detailed above. Assessment & Plan - Diagnosis (1) Acute kidney injury superimposed on chronic kidney disease Is this a current diagnosis for this admission?: Yes Plan: Unknown current baseline kidney function but last creatinine in 2017 was 1.8. Like to have multifactorial causes that could have caused ATN. This factors include severe dehydration due to poor oral intake, medications including use of high doses of ibuprofen, Ozempic, metformin and lisinopril. Due to severe hyperkalemia and metabolic acidosis, the patient needs an emergent renal replacement therapy. I discussed with the patient the procedure including complications which include but not limited to bleeding, infection, hemodynamic instability and cardiac arrest during dialysis treatment. Patient understood and agreed to proceed. We called Dr. Goodwin, surgery to place a temporary dialysis catheter which she successfully placed. We will do dialysis today for 3 hours, using the patient's dialysis catheter, with 1 potassium bath for 2 hours followed by 2 potassium bath, blood flow rate of 250 mL per minute, dialysate flow rate of 600 mL per minute, ultrafiltration none, no heparin and no Procrit. Discuss dialysis orders with her dialysis nurse. We will check potassium after 2 hours. Patient will be monitored toward closely during dialysis treatment this afternoon. Patient most likely has underlying diabetic nephropathy. We will see if he can get most recent lab test from his primary care provider. Will check urine for microalbumin to creatinine ratio. (2) Hyperkalemia, diminished renal excretion Is this a current diagnosis for this admission?: Yes Plan: EKG is peaked T waves. He was initially given calcium gluconate, regular insulin with D50/50, and an amp of sodium bicarbonate in the emergency room. Emergent dialysis is currently underway. (3) Metabolic acidosis Is this a current diagnosis for this admission?: Yes Plan: Severe due to RASHMI, possible sepsis, lactic acidosis contributed by metformin in combination with starvation ketoacidosis. (4) Dehydration Is this a current diagnosis for this admission?: Yes Plan: Needs IV fluid hydration. (5) Leukocytosis Is this a current diagnosis for this admission?: Yes Plan: Blood cultures pending. Patient was given a dose of imipenem in the emergency room. Abdominal CT has some perinephric stranding which could be pyelonephritis but urinalysis is pretty clean. (6) Diabetes mellitus type 2 with complications Is this a current diagnosis for this admission?: Yes (7) Hypertension Is this a current diagnosis for this admission?: Yes - Notes Notes: Thank you very much for this consultation. Discussed with emergency room provider Dr. Ashton and Dr. Morocho, medical billing service.
[2020-02-09] MEDS: RINGERS SOLUTION,LACTATED 1,000 ML IV PRN ×2 (13:20→19:58)
[2020-02-09] MEDS: INSULIN REG, HUMAN 100 UNIT/ML 3 ML VIAL (PYX) SUBCUT SCH ×2 (13:31→17:12)
[2020-02-09] MEDS: HEPARIN SOD (PORCINE) 5,000 UNIT/ML 1 ML VIAL SUBCUT SCH ×2 (15:49→21:27)
[2020-02-09 18:19] LABS: BLOOD UREA NITROGEN 44 mg/dL (7-20); CALCIUM 8.3 mg/dL (8.4-10.2); CARBON DIOXIDE 11 mmol/L (22-30); CHLORIDE 95 mmol/L (98-107); GLUCOSE 136 mg/dL (75-110)
[2020-02-09 18:23] LABS: POTASSIUM 6.2 mmol/L (3.6-5.0)
[2020-02-09 18:26] LABS: ANION GAP 31 (5-19)
[2020-02-09] MEDS ORDERED: ONDANSETRON HCL INJ/PF 4 MG/2 ML SDV IV PRN (21:19)
[2020-02-09 22:51] LABS: BLOOD UREA NITROGEN 52 mg/dL (7-20); CALCIUM 8.1 mg/dL (8.4-10.2); CHLORIDE 93 mmol/L (98-107); GLUCOSE 131 mg/dL (75-110); POTASSIUM 5.8 mmol/L (3.6-5.0)
[2020-02-09 22:57] LABS: ANION GAP 22 (5-19); CARBON DIOXIDE 19 mmol/L (22-30)
[2020-02-10] MEDS: BENZOCAINE/MENTHOL SORE THROAT LOZENGE BUCCAL PRN ×2 (00:03→05:39)
[2020-02-10] MEDS: INSULIN REG, HUMAN 100 UNIT/ML 3 ML VIAL (PYX) SUBCUT SCH ×4 (00:10→17:34)
[2020-02-10] MEDS: ACETAMINOPHEN 325 MG TABLET PO PRN (01:36)
[2020-02-10] MEDS: RINGERS SOLUTION,LACTATED 1,000 ML IV PRN ×3 (01:37→15:06)
[2020-02-10] MEDS ORDERED: NORMAL SALINE 1000 ML 1,000 ML IV PRN (05:00)
[2020-02-10] MEDS ORDERED: HEPARIN SOD (PORCINE) 1,000 UNIT/ML 10 ML VIAL IV PRN (05:00)
[2020-02-10 05:07] LABS: ANION GAP 12 (5-19); BLOOD UREA NITROGEN 66 mg/dL (7-20); CALCIUM 8.3 mg/dL (8.4-10.2); CARBON DIOXIDE 26 mmol/L (22-30); CHLORIDE 96 mmol/L (98-107); GLUCOSE 82 mg/dL (75-110); PHOSPHORUS 5.1 mg/dL (2.5-4.5); POTASSIUM 5.8 mmol/L (3.6-5.0)
[2020-02-10] MEDS: HEPARIN SOD (PORCINE) 5,000 UNIT/ML 1 ML VIAL SUBCUT SCH ×3 (05:27→22:23)
[2020-02-10 06:08] LABS: ABSOLUTE LYMPHOCYTES (AUTO) 1.2 10^3/uL (0.5-4.7); ABSOLUTE MONOCYTES (AUTO) 1.1 10^3/uL (0.1-1.4); ABSOLUTE NEUT (AUTO) 8.7 10^3/uL (1.7-8.2); BASOPHILS % (AUTO) 0.2 % (0-2); HEMATOCRIT 34.4 % (37.9-51.0); LYMPHOCYTES % (AUTO) 10.8 % (13-45); MEAN CORPUSCULAR HEMOGLOBIN 31.9 pg (27.0-33.4); MEAN CORPUSCULAR HGB CONC 36.3 g/dL (32.0-36.0); MONOCYTES % (AUTO) 10.1 % (3-13); PLATELET COUNT 227 10^3/uL (150-450); RED BLOOD COUNT 3.92 10^6/uL (4.35-5.55); RED CELL DISTRIBUTION WIDTH 13.3 % (11.5-14.0); SEGMENTED NEUTROPHILS % (AUTO) 78.9 % (42-78); TOTAL CELLS COUNTED % (AUTO) 100 %
[2020-02-10 06:09] LABS: HEMOGLOBIN 12.5 g/dL (13.5-17.0); MEAN CORPUSCULAR VOLUME 88 fl (80-97)
--- NOTE | 2020-02-10 08:26 | PDOC CRITICAL CARE PROG REPORT ---
General Date:: 02/10/20 ICU Day:: 2 Hospital Day:: 2 Resuscitation Status: Full Code Events in the past 12 to 24 Hours:: Received HD K lower. Feeling better. Review of systems relevant to events:: Renal Reason for ICU Addmission:: Hyperkalemia, need for emergant HD. - Medications: Medications reviewed and adjusted accordingly: Yes Vasopressors:: None Sedation:: None Physical Exam Vital Signs: Temp Pulse Resp BP Pulse Ox 99.0 F 117 H 11 L 133/72 H 95 02/10/20 06:08 02/09/20 22:00 02/10/20 06:07 02/10/20 06:08 02/10/20 06:08 Intake & Output 02/09/20 02/10/20 02/11/20 06:59 06:59 06:59 Intake Total 4383 980 Output Total 3025 Balance 1358 980 Weight 87.5 kg Weight/Height Weight 87.5 kg Height 6 ft 4 in General appearance: PRESENT: no acute distress, thin Head exam: PRESENT: atraumatic, normocephalic Eye exam: PRESENT: conjunctiva pink, EOMI, PERRLA. ABSENT: scleral icterus Ear exam: PRESENT: normal external ear exam Mouth exam: PRESENT: moist, tongue midline Respiratory exam: PRESENT: clear to auscultation violette. ABSENT: rales, rhonchi, wheezes Cardiovascular exam: PRESENT: RRR, tachycardia. ABSENT: diastolic murmur, rubs, systolic murmur GI/Abdominal exam: PRESENT: normal bowel sounds, soft. ABSENT: distended, guarding, mass, organolmegaly, rebound, tenderness Rectal exam: PRESENT: deferred Gentrourinary exam: PRESENT: indwelling catheter Extremities exam: PRESENT: full ROM. ABSENT: calf tenderness, clubbing, pedal edema Musculoskeletal exam: PRESENT: normal inspection Neurological exam: PRESENT: alert, awake, oriented to person, oriented to place, oriented to time, oriented to situation, CN II-XII grossly intact. ABSENT: motor sensory deficit Skin exam: PRESENT: dry, intact, warm, other - Mottling gone. ABSENT: cyanosis, rash Tubes/Lines: PRESENT: Dialysis catheter Laboratory/Radiographs Laboratory Results: 02/10/20 05:41 02/10/20 04:29 02/09/20 02/09/20 02/09/20 07:05 08:53 08:53 WBC 23.6 H RBC 4.70 Hgb 15.0 Hct 45.5 MCV 97 MCH 31.8 MCHC 32.8 RDW 13.6 Plt Count 412 Seg Neutrophils % VBG pH VBG pCO2 VBG HCO3 VBG Base Excess Sodium 143.2 Potassium 8.0 H* Chloride 98 Carbon Dioxide < 5 L* Anion Gap Not Reportable BUN 60 H Creatinine 9.92 H Est GFR ( Amer) 7 L Est GFR (Non-Af Amer) Glucose 63 L Lactic Acid 18.0 H Calcium 9.6 Phosphorus Magnesium Total Bilirubin 0.6 AST 38 Alkaline Phosphatase 47 Total Protein 6.5 Albumin 4.2 Urine Color Urine Appearance Urine pH Ur Specific Minerva Urine Protein Urine Glucose (UA) Urine Ketones Urine Blood Urine RBC (Auto) 02/09/20 02/09/20 02/09/20 08:53 10:02 14:09 WBC RBC Hgb Hct MCV MCH MCHC RDW Plt Count Seg Neutrophils % VBG pH 6.81 L* VBG pCO2 36.2 VBG HCO3 5.7 L VBG Base Excess -28.5 Sodium Potassium 6.5 H* D Chloride Carbon Dioxide Anion Gap BUN Creatinine Est GFR ( Amer) Est GFR (Non-Af Amer) Glucose Lactic Acid Calcium Phosphorus Magnesium Total Bilirubin AST Alkaline Phosphatase Total Protein Albumin Urine Color YELLOW Urine Appearance SLIGHTLY-CLOUDY Urine pH 5.0 Ur Specific Min[place] 1.011 Urine Protein 100 H Urine Glucose (UA) NEGATIVE Urine Ketones 20 H Urine Blood SMALL H Urine RBC (Auto) 1 02/09/20 02/09/20 02/09/20 17:44 21:32 21:32 WBC RBC Hgb Hct MCV MCH MCHC RDW Plt Count Seg Neutrophils % VBG pH VBG pCO2 VBG HCO3 VBG Base Excess Sodium 136.6 L Cancelled Cancelled Potassium 6.2 H* Cancelled Cancelled Chloride 95 L Cancelled Cancelled Carbon Dioxide 11 L Cancelled Cancelled Anion Gap 31 H Cancelled Cancelled BUN 44 H Cancelled Cancelled Creatinine 6.15 H Cancelled Cancelled Est GFR ( Amer) 11 L Cancelled Cancelled Est GFR (Non-Af Amer) Cancelled Cancelled Glucose 136 H Cancelled Cancelled Lactic Acid Calcium 8.3 L Cancelled Cancelled Phosphorus Cancelled Magnesium Total Bilirubin AST Alkaline Phosphatase Total Protein Albumin Cancelled Urine Color Urine Appearance Urine pH Ur Specific Minerva Urine Protein Urine Glucose (UA) Urine Ketones Urine Blood Urine RBC (Auto) 02/09/20 02/10/20 02/10/20 22:23 04:29 04:29 WBC Cancelled RBC Cancelled Hgb Cancelled Hct Cancelled MCV Cancelled MCH Cancelled MCHC Cancelled RDW Cancelled Plt Count Cancelled Seg Neutrophils % Cancelled VBG pH VBG pCO2 VBG HCO3 VBG Base Excess Sodium 133.7 L 134.0 L Potassium 5.8 H 5.8 H Chloride 93 L 96 L Carbon Dioxide 19 L 26 Anion Gap 22 H 12 BUN 52 H 66 H Creatinine 5.63 H 6.20 H Est GFR ( Amer) 13 L 11 L Est GFR (Non-Af Amer) Glucose 131 H 82 Lactic Acid Calcium 8.1 L 8.3 L Phosphorus 5.1 H Magnesium 2.1 D Total Bilirubin AST Alkaline Phosphatase Total Protein Albumin Urine Color Urine Appearance Urine pH Ur Specific Minerva Urine Protein Urine Glucose (UA) Urine Ketones Urine Blood Urine RBC (Auto) 02/10/20 05:41 WBC 11.0 H RBC 3.92 L Hgb 12.5 L D Hct 34.4 L MCV 88 D MCH 31.9 MCHC 36.3 H RDW 13.3 Plt Count 227 Seg Neutrophils % 78.9 H VBG pH VBG pCO2 VBG HCO3 VBG Base Excess Sodium Potassium Chloride Carbon Dioxide Anion Gap BUN Creatinine Est GFR ( Amer) Est GFR (Non-Af Amer) Glucose Lactic Acid Calcium Phosphorus Magnesium Total Bilirubin AST Alkaline Phosphatase Total Protein Albumin Urine Color Urine Appearance Urine pH Ur Specific Min[place] Urine Protein Urine Glucose (UA) Urine Ketones Urine Blood Urine RBC (Auto) 02/09/20 02/09/20 02/09/20 07:05 07:05 08:53 Creatine Kinase Cancelled 45 L CK-MB (CK-2) Cancelled Troponin I Cancelled 02/09/20 08:53 Creatine Kinase CK-MB (CK-2) 5.53 H Troponin I < 0.012 Impressions: Chest X-Ray 02/09/20 07:15 IMPRESSION: NO ACUTE RADIOGRAPHIC FINDING IN THE CHEST. Abdomen/Pelvis CT 02/09/20 08:26 IMPRESSION: Right renal findings are nonspecific, and may represent a recently passed stone. Pyelonephritis may have a similar appearance. Other chronic and incidental findings as detailed above. EKG: NSR no peaked T waves. All labs, radiographs, diagnostic studies and EKGs were personally reviewed: Yes In addition, reports of radiographic and diagnostic studies were read: Yes Assessment and Plan - Diagnosis (1) ARF (acute renal failure) Qualifiers: Acute renal failure type: with acute tubular necrosis Qualified Code(s): N 17.0 - Acute kidney failure with tubular necrosis Is this a current diagnosis for this admission?: Yes Plan: Numbers improved with HD. Probably improved with hydration. To get a 3 hour HD run today the likely transfer. (2) Hyperkalemia, diminished renal excretion Is this a current diagnosis for this admission?: Yes Plan: Level is 5.8. Would like to see it lowere before transfer (3) Acidosis Is this a current diagnosis for this admission?: Yes Plan: Improved. Bicarb 26. (4) Dehydration Is this a current diagnosis for this admission?: Yes Plan: Resolving Plan Summary: Have dialysis run. Repeat labs and hope to transfer. Critical Time Critical Time (minutes): 35 Level of Care: ICU Anticipated discharge: Home Anticipated DC Timeframe: Other -: 1. The care of a critical patient is a dynamic process. This note is a medical service representative synopsis but static in nature. The timeframe for treatments given in order is not necessarily the actual time these treatments may have been done. 2. This patient requires critical care secondary to ongoing requirements for th erapy not offered or safe outside the critical care environment. Transfer to a lower level of care will result in altered life or limb morbidity and mortality. 3. Multidisciplinary rounds completed. 4. ABCDE bundle addressed.
[2020-02-10 09:37] LABS: HEPATITS B SURFACE ANTIGEN Negative (Negative)
[2020-02-10 09:49] LABS: HEPATITIS B CORE AB TOT Negative (Negative)
--- NOTE | 2020-02-10 16:44 | PDOC PROGRESS REPORT ---
Subjective Progress Note for:: 02/10/20 Reason For Visit: Patient seen today. Chart review was done prior to seeing the patient. He has a history of diabetes mellitus type 2 complicated by diabetic neuropathy, hypertension, history of vesicoureteral reflux with reimplantation of bilateral ureters at age [age] years old, chronic kidney disease stage III, fatty liver, tachycardia who presented to the emergency room with epigastric pain burning with radiation to the center of the chest, nausea and vomiting for the last 36 hours. Patient states that he was started on Ozempic about 9 weeks ago for his diabetes. He began to feel generally bad with some nausea and a feeling of uneasiness after his first dose of Ozempic. He also mentioned that he has been taking ibuprofen plus hydrocodone for a tooth ache. He was taking ibuprofen at thousand milligrams 3 times a day for 10 days which he stopped a week ago. Initial evaluation in the emergency room revealed a potassium of 8.0, BUN of 60, creatinine of 9.92 and bicarbonate less than 5. He has a WBC count of 22.6. Chest x-ray is negative. Abdominal CT showed that on the right kidney there was perinephric fat stranding and tiny nonobstructing nephroliths. Both kidneys have no hydronephrosis no hydroureter. His venous blood gas showed a pH of 6.81, with bicarbonate of 5.7 and PCO2 36.2. His lactic acid was 18. Magnesium also elevated at 3.3. Urinalysis showed protein of 100, ketones of 20, small blood, negative nitrite and leukocyte esterase, RBC of 1, WBC of 2 and ascorbic acid of 20. He was tested for COVID-19 and is posted negative today. Has been on dialysis emergently yesterday but potassium continues to be remaining on high end of normal. He is continuing to get another dialysis today given his renal numbers still not showing signs of stabilization. Patient currently undergoing dialysis without any issues. He denies any true chest pains or shortness of breath, fever chills or abdominal pains. Labs and medications were reviewed. Dialysis orders were reviewed the treating dialysis nurse. Physical Exam Vital Signs: Temp Pulse Resp BP Pulse Ox 99.1 F 94 11 L 115/70 98 02/10/20 16:00 02/10/20 16:00 02/10/20 16:00 02/10/20 16:00 02/10/20 16:00 Intake & Output 02/09/20 02/10/20 02/11/20 06:59 06:59 06:59 Intake Total 4383 1980 Output Total 3029 6545 Balance 1358 -985 Weight 87.5 kg General appearance: PRESENT: no acute distress Respiratory exam: PRESENT: clear to auscultation violette, decreased breath sounds. ABSENT: crackles Cardiovascular exam: PRESENT: +S1, +S2 GI/Abdominal exam: PRESENT: normal bowel sounds, soft. ABSENT: organomegaly, tenderness Neurological exam: PRESENT: alert, awake, oriented to person, oriented to place Psychiatric exam: PRESENT: appropriate affect Results Laboratory Results: 02/10/20 05:41 02/09/20 02/09/20 02/09/20 17:44 21:32 21:32 WBC RBC Hgb Hct MCV MCH MCHC RDW Plt Count Seg Neutrophils % Sodium 136.6 L Cancelled Cancelled Potassium 6.2 H* Cancelled Cancelled Chloride 95 L Cancelled Cancelled Carbon Dioxide 11 L Cancelled Cancelled Anion Gap 31 H Cancelled Cancelled BUN 44 H Cancelled Cancelled Creatinine 6.15 H Cancelled Cancelled Est GFR ( Amer) 11 L Cancelled Cancelled Est GFR (Non-Af Amer) Cancelled Cancelled Glucose 136 H Cancelled Cancelled Calcium 8.3 L Cancelled Cancelled Phosphorus Cancelled Magnesium Albumin Cancelled 02/09/20 02/10/20 02/10/20 22:23 04:29 04:29 WBC Cancelled RBC Cancelled Hgb Cancelled Hct Cancelled MCV Cancelled MCH Cancelled MCHC Cancelled RDW Cancelled Plt Count Cancelled Seg Neutrophils % Cancelled Sodium 133.7 L 134.0 L Potassium 5.8 H 5.8 H Chloride 93 L 96 L Carbon Dioxide 19 L 26 Anion Gap 22 H 12 BUN 52 H 66 H Creatinine 5.63 H 6.20 H Est GFR ( Amer) 13 L 11 L Est GFR (Non-Af Amer) Glucose 131 H 82 Calcium 8.1 L 8.3 L Phosphorus 5.1 H Magnesium 2.1 D Albumin 02/10/20 05:41 WBC 11.0 H RBC 3.92 L Hgb 12.5 L D Hct 34.4 L MCV 88 D MCH 31.9 MCHC 36.3 H RDW 13.3 Plt Count 227 Seg Neutrophils % 78.9 H Sodium Potassium Chloride Carbon Dioxide Anion Gap BUN Creatinine Est GFR ( Amer) Est GFR (Non-Af Amer) Glucose Calcium Phosphorus Magnesium Albumin 02/09/20 02/09/20 02/09/20 07:05 07:05 08:53 Creatine Kinase Cancelled 45 L CK-MB (CK-2) Cancelled Troponin I Cancelled 02/09/20 08:53 Creatine Kinase CK-MB (CK-2) 5.53 H Troponin I < 0.012 Impressions: Chest X-Ray 02/09/20 07:15 IMPRESSION: NO ACUTE RADIOGRAPHIC FINDING IN THE CHEST. Abdomen/Pelvis CT 02/09/20 08:26 IMPRESSION: Right renal findings are nonspecific, and may represent a recently passed stone. Pyelonephritis may have a similar appearance. Other chronic and incidental findings as detailed above. Assessment & Plan - Diagnosis (1) Acute kidney injury superimposed on chronic kidney disease Is this a current diagnosis for this admission?: Yes Plan: Looks like patient has got underlying CKD with his creatinine 1.7 along with proteinuria way back in 2017 and used to see nephrology in [place]. Now obviously has got RASHMI secondary to multifactorial causes associated with severe hyperkalemia and metabolic acidosis which necessitated an emergent dialysis yesterday. Hyperkalemia status remains high but acidosis has improved but his renal numbers are still climbing and has therefore prompted me to continue on dialysis today as well. Is making good urine output which is hopeful for me aningful renal recovery. Dialysis is being supervised and monitored. Dialysis orders were reviewed with the treating dialysis nurse. (2) Diabetes mellitus type 2 with complications Is this a current diagnosis for this admission?: Yes Plan: As per hospitalist/microscopist. (3) Hyperkalemia, diminished renal excretion Is this a current diagnosis for this admission?: Yes Plan: Partially responded yesterday to emergent dialysis. Therefore will repeat dialysis today and monitor with labs postdialysis. I am going to change IV fluids from Ringer's lactate to normal saline. (4) Hypertension Is this a current diagnosis for this admission?: Yes Plan: Controlled. Monitor. Avoid GEGE/ARBS for now. (5) Metabolic acidosis Is this a current diagnosis for this admission?: Yes Plan: Resolved. Monitor with labs postdialysis. Avoid metformin and similar medications in the future.
[2020-02-10 16:49] LABS: ANION GAP 8 (5-19); CALCIUM 7.9 mg/dL (8.4-10.2); CARBON DIOXIDE 31 mmol/L (22-30); CHLORIDE 96 mmol/L (98-107); GLUCOSE 86 mg/dL (75-110)
[2020-02-10 17:05] LABS: BLOOD UREA NITROGEN 40 mg/dL (7-20); POTASSIUM 4.2 mmol/L (3.6-5.0)
[2020-02-10] MEDS: MAG HYDROX/AL HYDROX/SIMETH SUSP 30 ML UDCUP PO PRN ×2 (17:41→22:36)
[2020-02-10] MEDS: NORMAL SALINE 1000 ML 1,000 ML IV PRN (17:41)
[2020-02-10] MEDS ORDERED: NOREPINEPHRINE BITARTRATE INJ/PF 4 MG/4 ML SDV IV ONE (19:52)
[2020-02-11] MEDS: HEPARIN SOD (PORCINE) 5,000 UNIT/ML 1 ML VIAL SUBCUT SCH ×3 (05:48→21:38)
[2020-02-11] MEDS: MAG HYDROX/AL HYDROX/SIMETH SUSP 30 ML UDCUP PO PRN (05:54)
[2020-02-11] MEDS: NORMAL SALINE 1000 ML 1,000 ML IV PRN ×2 (08:30→22:37)
[2020-02-11] MEDS: INSULIN LISPRO 100 UNIT/ML 3 ML VIAL SUBCUT SCH ×4 (08:48→21:43)
[2020-02-11] MEDS: INSULIN REG, HUMAN 100 UNIT/ML 3 ML VIAL (PYX) SUBCUT SCH (09:08)
[2020-02-11] MEDS: ACETAMINOPHEN 325 MG TABLET PO PRN (12:21)
--- NOTE | 2020-02-11 14:17 | PDOC PROGRESS REPORT ---
Subjective Progress Note for:: 02/11/20 Subjective:: No adverse events overnight. No new complaints. He had many questions, all of which were answered to his satisfaction. He is putting out urine. His vital signs are stable. His potassium has returned to normal. Reason For Visit: ARF,HYPERKALEMIA,NEEDS STAT DIALYSIS Physical Exam Vital Signs: Temp Pulse Resp BP Pulse Ox 97.8 F 95 18 143/77 H 98 02/11/20 10:49 02/11/20 10:49 02/11/20 10:49 02/11/20 10:49 02/11/20 10:49 Intake & Output 02/10/20 02/11/20 02/12/20 06:59 06:59 06:59 Intake Total 4383 2721 1120 Output Total 3025 7062 725 Balance 1358 -2094 395 Weight 87.5 kg 98.5 kg General appearance: PRESENT: no acute distress, cooperative, disheveled Respiratory exam: PRESENT: clear to auscultation violette, symmetrical, unlabored. ABSENT: accessory muscle use, chest wall tenderness, crackles, prolonged expiratory phas, rhonchi, tachypnea, wheezes Cardiovascular exam: PRESENT: RRR, +S1, +S2 Pulses: PRESENT: normal carotid pulses Vascular exam: PRESENT: normal capillary refill GI/Abdominal exam: PRESENT: normal bowel sounds, soft. ABSENT: distended, guarding, rebound, tenderness Extremities exam: ABSENT: clubbing, pedal edema Musculoskeletal exam: PRESENT: normal inspection. ABSENT: deformity Neurological exam: PRESENT: alert, awake, oriented to person, oriented to place, oriented to situation Psychiatric exam: PRESENT: appropriate affect, normal mood Skin exam: PRESENT: dry, warm Results Laboratory Results: 02/10/20 05:41 02/10/20 16:16 02/10/20 16:16 Sodium 135.1 L Potassium 4.2 D Chloride 96 L Carbon Dioxide 31 H Anion Gap 8 BUN 40 H D Creatinine 4.35 H Est GFR ( Amer) 17 L Glucose 86 Calcium 7.9 L 02/09/20 02/09/20 02/09/20 07:05 07:05 08:53 Creatine Kinase Cancelled 45 L CK-MB (CK-2) Cancelled Troponin I Cancelled 02/09/20 08:53 Creatine Kinase CK-MB (CK-2) 5.53 H Troponin I < 0.012 Impressions: Chest X-Ray 02/09/20 07:15 IMPRESSION: NO ACUTE RADIOGRAPHIC FINDING IN THE CHEST. Abdomen/Pelvis CT 02/09/20 08:26 IMPRESSION: Right renal findings are nonspecific, and may represent a recently passed stone. Pyelonephritis may have a similar appearance. Other chronic and incidental findings as detailed above. Assessment and Plan - Diagnosis (1) Acute kidney injury superimposed on chronic kidney disease Is this a current diagnosis for this admission?: Yes Plan: He has had a couple of dialysis treatments, but now his acidosis and hyperkalemia have corrected and his creatinine has improved and he is putting out good amounts of urine, all which are positive signs that his renal function may be recovering. We will monitor him over the weekend and look for signs of deteriorating renal function. Nephrology will be back in to see him on Thursday. (2) Dehydration Is this a current diagnosis for this admission?: Yes Plan: Resolved (3) Diabetes mellitus type 2 with complications Is this a current diagnosis for this admission?: Yes Plan: Continue diabetic diet with insulin and sliding scale coverage (4) Hyperkalemia, diminished renal excretion Is this a current diagnosis for this admission?: Yes Plan: Resolved (5) Hypertension Qualifiers: Hypertension type: essential hypertension Qualified Code(s): I10 - Esse ntial (primary) hypertension Is this a current diagnosis for this admission?: Yes Plan: We are holding his lisinopril for now (6) Metabolic acidosis Is this a current diagnosis for this admission?: Yes Plan: Resolved - Time Time Spent with patient: 25-34 minutes Anticipated Discharge Disposition: Home, Self Care Anticipated Discharge Timeframe: within 72 hours
[2020-02-11 18:36] LABS: CREATININE URINE 30.4 mg/dL (Not Estab.); MICROALBUMIN URINE 246.8 ug/mL (Not Estab.)
[2020-02-12] MEDS: HEPARIN SOD (PORCINE) 5,000 UNIT/ML 1 ML VIAL SUBCUT SCH ×3 (05:18→22:01)
[2020-02-12 06:21] LABS: ANION GAP 11 (5-19); BLOOD UREA NITROGEN 35 mg/dL (7-20); CALCIUM 7.7 mg/dL (8.4-10.2); CARBON DIOXIDE 26 mmol/L (22-30); CHLORIDE 104 mmol/L (98-107); GLUCOSE 159 mg/dL (75-110); POTASSIUM 3.8 mmol/L (3.6-5.0)
[2020-02-12] MEDS: INSULIN LISPRO 100 UNIT/ML 3 ML VIAL SUBCUT SCH ×4 (08:09→22:00)
[2020-02-12] MEDS: ACETAMINOPHEN 325 MG TABLET PO PRN (08:12)
[2020-02-12] MEDS: NORMAL SALINE 1000 ML 1,000 ML IV PRN (12:15)
[2020-02-12 12:36] LABS: HEPATITIS C QUANTITATION HCV Not Detected IU/mL (.)
--- NOTE | 2020-02-12 14:21 | PDOC PROGRESS REPORT ---
Subjective Progress Note for:: 02/12/20 Subjective:: No adverse events overnight. No new complaints. Eating and drinking without difficulty. He said good urine output. Reason For Visit: ARF,HYPERKALEMIA,NEEDS STAT DIALYSIS Physical Exam Vital Signs: Temp Pulse Resp BP Pulse Ox 98.1 F 94 18 150/82 H 99 02/12/20 12:06 02/12/20 12:06 02/12/20 12:06 02/12/20 12:06 02/12/20 12:06 Intake & Output 02/11/20 02/12/20 02/13/20 06:59 06:59 06:59 Intake Total 2721 2822 480 Output Total 4815 4225 700 Balance -4790 -2136 -220 Weight 98.5 kg 96.8 kg General appearance: PRESENT: no acute distress, cooperative, disheveled Respiratory exam: PRESENT: clear to auscultation violette, symmetrical, unlabored. ABSENT: accessory muscle use, chest wall tenderness, crackles, prolonged expiratory phas, rhonchi, tachypnea, wheezes Cardiovascular exam: PRESENT: RRR, +S1, +S2 Pulses: PRESENT: normal carotid pulses Vascular exam: PRESENT: normal capillary refill GI/Abdominal exam: PRESENT: normal bowel sounds, soft. ABSENT: distended, guarding, rebound, tenderness Extremities exam: ABSENT: clubbing, pedal edema Musculoskeletal exam: PRESENT: normal inspection. ABSENT: deformity Neurological exam: PRESENT: alert, awake, oriented to person, oriented to place, oriented to situation Psychiatric exam: PRESENT: appropriate affect, normal mood Skin exam: PRESENT: dry, warm Results Laboratory Results: 02/10/20 05:41 02/12/20 05:30 02/12/20 05:30 Sodium 141.2 Potassium 3.8 Chloride 104 Carbon Dioxide 26 Anion Gap 11 BUN 35 H Creatinine 3.22 H Est GFR ( Amer) 24 L Glucose 159 H Calcium 7.7 L 02/09/20 02/09/20 02/09/20 07:05 07:05 08:53 Creatine Kinase Cancelled 45 L CK-MB (CK-2) Cancelled Troponin I Cancelled 02/09/20 08:53 Creatine Kinase CK-MB (CK-2) 5.53 H Troponin I < 0.012 Impressions: Chest X-Ray 02/09/20 07:15 IMPRESSION: NO ACUTE RADIOGRAPHIC FINDING IN THE CHEST. Abdomen/Pelvis CT 02/09/20 08:26 IMPRESSION: Right renal findings are nonspecific, and may represent a recently passed stone. Pyelonephritis may have a similar appearance. Other chronic and incidental findings as detailed above. Assessment and Plan - Diagnosis (1) Acute kidney injury superimposed on chronic kidney disease Is this a current diagnosis for this admission?: Yes Plan: Creatinine continues to improve. Good urine output. We will have nephrology weigh in on him tomorrow, but he may be able to be discharged with outpatient follow-up tomorrow. (2) Dehydration Is this a current diagnosis for this admission?: Yes Plan: Resolved (3) Diabetes mellitus type 2 with complications Is this a current diagnosis for this admission?: Yes Plan: Continue diabetic diet with insulin and sliding scale coverage (4) Hyperkalemia, diminished renal excretion Is this a current diagnosis for this admission?: Yes Plan: Resolved (5) Hypertension Qualifiers: Hypertension type: essential hypertension Qualified Code(s): I10 - Essential (primary) hypertension Is this a current diagnosis for this admission?: Yes Plan: We are holding his lisinopril for now (6) Metabolic acidosis Is this a current diagnosis for this admission?: Yes Plan: Resolved - Time Time Spent with patient: 15-24 minutes Anticipated Discharge Disposition: Home, Self Care Anticipated Discharge Timeframe: within 24 hours
[2020-02-12] MEDS: MAG HYDROX/AL HYDROX/SIMETH SUSP 30 ML UDCUP PO PRN (22:09)
[2020-02-13] MEDS: HEPARIN SOD (PORCINE) 5,000 UNIT/ML 1 ML VIAL SUBCUT SCH (05:09)
[2020-02-13] MEDS: NORMAL SALINE 1000 ML 1,000 ML IV PRN (05:10)
[2020-02-13 06:37] LABS: HEMATOCRIT 33.5 % (37.9-51.0); HEMOGLOBIN 11.9 g/dL (13.5-17.0); MEAN CORPUSCULAR HEMOGLOBIN 31.9 pg (27.0-33.4); MEAN CORPUSCULAR HGB CONC 35.6 g/dL (32.0-36.0); MEAN CORPUSCULAR VOLUME 90 fl (80-97); PLATELET COUNT 191 10^3/uL (150-450); RED BLOOD COUNT 3.75 10^6/uL (4.35-5.55); RED CELL DISTRIBUTION WIDTH 12.9 % (11.5-14.0); WHITE BLOOD COUNT 6.1 10^3/uL (4.0-10.5)
[2020-02-13 07:08] LABS: ANION GAP 11 (5-19); BLOOD UREA NITROGEN 29 mg/dL (7-20); CALCIUM 7.5 mg/dL (8.4-10.2); CARBON DIOXIDE 23 mmol/L (22-30); CHLORIDE 108 mmol/L (98-107); GLUCOSE 154 mg/dL (75-110)
[2020-02-13] MEDS: INSULIN LISPRO 100 UNIT/ML 3 ML VIAL SUBCUT SCH ×2 (07:40→11:21)
--- NOTE | 2020-02-13 11:13 | PDOC PROGRESS REPORT ---
Subjective Progress Note for:: 02/13/20 Reason For Visit: Patient seen in the hospital today. He is feeling great. He denies any history of abdominal pains or chest pains or shortness of breath. He still has a temporary right femoral dialysis catheter as well as a Prince catheter. His appetite is good and is eating well. Labs and medications were reviewed that shows much improved renal functions with his creatinine at 2+ as compared to his possible baseline of 1.7. His last dialysis was on Thursday. Physical Exam Vital Signs: Temp Pulse Resp BP Pulse Ox 97.5 F 76 16 143/79 H 98 02/13/20 08:09 02/13/20 07:00 02/13/20 03:30 02/13/20 03:30 02/13/20 03:30 Intake & Output 02/12/20 02/13/20 02/14/20 06:59 06:59 06:59 Intake Total 2822 3576 Output Total 4225 1850 Balance -1403 1726 Weight 96.8 kg 95.4 kg General appearance: PRESENT: no acute distress Respiratory exam: PRESENT: clear to auscultation violette. ABSENT: crackles Cardiovascular exam: PRESENT: +S1, +S2 GI/Abdominal exam: PRESENT: normal bowel sounds, soft. ABSENT: organomegaly, tenderness Extremities exam: ABSENT: pedal edema Neurological exam: PRESENT: alert, awake, oriented to person, oriented to place Psychiatric exam: PRESENT: appropriate affect Results Laboratory Results: 02/13/20 05:45 02/13/20 05:45 02/13/20 02/13/20 05:45 05:45 WBC 6.1 RBC 3.75 L Hgb 11.9 L Hct 33.5 L MCV 90 MCH 31.9 MCHC 35.6 RDW 12.9 Plt Count 191 Sodium 142.4 Potassium 4.0 Chloride 108 H Carbon Dioxide 23 Anion Gap 11 BUN 29 H Creatinine 2.12 H Est GFR ( Amer) 39 L Glucose 154 H Calcium 7.5 L 02/09/20 02/09/20 02/09/20 07:05 07:05 08:53 Creatine Kinase Cancelled 45 L CK-MB (CK-2) Cancelled Troponin I Cancelled 02/09/20 08:53 Creatine Kinase CK-MB (CK-2) 5.53 H Troponin I < 0.012 Impressions: Chest X-Ray 02/09/20 07:15 IMPRESSION: NO ACUTE RADIOGRAPHIC FINDING IN THE CHEST. Abdomen/Pelvis CT 02/09/20 08:26 IMPRESSION: Right renal findings are nonspecific, and may represent a recently passed stone. Pyelonephritis may have a similar appearance. Other chronic and incidental findings as detailed above. Assessment & Plan - Diagnosis (1) Acute kidney injury superimposed on chronic kidney disease Is this a current diagnosis for this admission?: Yes Plan: Looks like patient has got underlying CKD with his creatinine 1.7 along with proteinuria way back in 2017 and used to see nephrology in [place]. Now obviously has got RASHMI secondary to multifactorial causes associated with severe hyperkalemia and metabolic acidosis which necessitated an emergent dialysis yesterday. Hyperkalemia and acidosis has improved and his renal numbers are much improved with electrolytes being normal and creatinine now down to 2+. From a renal standpoint of view he is fit for discharge and he can follow-up wi roque me in the office in 2 weeks time with CBC chemistry and a urine analysis. He needs to have his temporary right femoral catheter removed as well as his Prince catheter removed and he urinates well prior to his discharge. Discussed with Clara who is his treating nurse on the floor. (2) Diabetes mellitus type 2 with complications Is this a current diagnosis for this admission?: Yes Plan: As per hospitalist/statistics professor. (3) Hyperkalemia, diminished renal excretion Is this a current diagnosis for this admission?: Yes Plan: Resolved with improvement in his RASHMI. (4) Hypertension Qualifiers: Hypertension type: essential hypertension Qualified Code(s): I10 - Essential (primary) hypertension Is this a current diagnosis for this admission?: Yes Plan: Stable. (5) Metabolic acidosis Is this a current diagnosis for this admission?: Yes Plan: Resolved.
[2020-02-13 12:18] VITALS: BP 146/86
--- NOTE | 2020-02-13 15:39 | PDOC DISCHARGE SUMMARY ---
Impression - Admit/DC Date/PCP Admission Date/Primary Care Provider: 02/09/20 10:43 NO LOCALMD Discharge Date: 02/13/20 - Discharge Diagnosis (1) Acute kidney injury superimposed on chronic kidney disease Is this a current diagnosis for this admission?: Yes (2) Dehydration Is this a current diagnosis for this admission?: Yes (3) Diabetes mellitus type 2 with complications Is this a current diagnosis for this admission?: Yes (4) Hyperkalemia, diminished renal excretion Is this a current diagnosis for this admission?: Yes (5) Hypertension Is this a current diagnosis for this admission?: Yes (6) Metabolic acidosis Is this a current diagnosis for this admission?: Yes - Additional Information Resuscitation Status: Full Code Discharge Diet: Diabetic Discharge Activity: Slowly Increase Activity Referrals: GUANAKO WRIGHT NP [COMMUNITY BASED STAFF] - (Dr. Wright's office will call patient with appointment.) Juancarlos EMERSON MD [ACTIVE STAFF] - (1 week - Left message on voice machine for appointment. [facility]) Prescriptions: Insulin Aspart [Novolog Flexpen] 0 - 12 unit SUBCUT AC #1 pen Home Medications: Lisinopril [Prinivil 20 mg Tablet] 20 mg PO QHS 05/31/12 Insulin Glargine,Hum.rec.anlog [Basaglar Kwikpen U-100] 60 unit SQ DAILY 02/09/20 Lovastatin 40 mg PO DAILY 02/09/20 Metoprolol Succinate [Toprol Xl 25 mg Tab.sr] 25 mg PO BID 02/09/20 Insulin Aspart [Novolog Flexpen] 0 - 12 unit SUBCUT AC #1 pen 02/13/20 History of Present Illiness History of Present Illness: Per initial nephrology consultation: "OSEAS AYERS III is a 59 year old male with history of diabetes mellitus type 2 complicated by diabetic neuropathy, hypertension, history of vesicoureteral reflux with reimplantation of bilateral ureters at age [age] years old, chronic kidney disease stage III, fatty liver, tachycardia who presented to the emergency room with epigastric pain burning with radiation to the center of the chest, nausea and vomiting for the last 36 hours. Patient states that he was started on Ozempic about 9 weeks ago for his diabetes. He took a dose on Thursday and started to feels some queasiness in his stomach. By Tammi he said his oral intake only includes some Pepsi, [place] fries and cookies. Yesterday started having nausea and vomiting and unable to take anything by mouth. He also started this burning sensation in epigastric area with radiation to the chest. He denies any chest pains, fever, nor cough. He did say he has some tightness in the chest with the burning sensation. He feels very weak. His throat is very dry and there is some discomfort. He also mentioned that he has been taking ibuprofen plus hydrocodone for a tooth ache. He was taking ibuprofen at thousand milligrams 3 times a day for 10 days which he stopped a week ago. Initial evaluation in the emergency room revealed a potassium of 8.0, BUN of 60, creatinine of 9.92 and bicarbonate less than 5. He has a WBC count of 22.6. Chest x-ray is negative. Abdominal CT showed that on the right kidney there was perinephric fat stranding and tiny nonobstructing nephroliths. Both kidneys have no hydronephrosis no hydroureter. His venous blood gas showed a pH of 6.81, with bicarbonate of 5.7 and PCO2 36.2. His lactic acid was 18. Magnesium also elevated at 3.3. Urinalysis showed protein of 100, ketones of 20, small blood, negative nitrite and leukocyte esterase, RBC of 1, WBC of 2 and ascorbic acid of 20. He was tested for COVID-19 and still currently pending. In the emergency room he was given a liter of IV fluid bolus, an amp of calcium gluconate, regular insulin and D50 50, an amp of sodium bicarbonate and a dose of imipenem. I was then called for consultation. I did get some records from our office in [place] and found that the patient has actually seen, Dr. Sanabria back in March 2017 once. At that time he has a creatinine of 1.8 with EGFR 50. Impression was possible diabetic nephropathy due to uncontrolled diabetes mellitus. Apparently he did not follow through. He said his primary care physician has been telling him that he still continues to have abnormal kidney function. His last blood work was 6 months ago. He denies any episode of acute kidney injury requiring hemodialysis in the past. He denies history of hepatitis, recent procedure, any intake of any herbal medications [id number], no recent hospitalizations and denies any known family history of kidney disease. He said his blood sugar is improving and the last A1c was 7.1. Significantly he is taking lisinopril, metformin, and Ozempic." Hospital Course Hospital Course: His medications were held and he received a couple of consecutive days of hemodialysis treatments, along with some IV fluid resuscitation. He showed good improvement in his acidosis and electrolyte disturbances, and his creatinine began to trend down. We watched him for a couple of days after he finishes hemodialysis treatments and his creatinine continued to trend back down towards his normal. It looks like he typically runs a creatinine of around 1.8, and he had trended down 2.1 at time of discharge. It is not in the sous chef's insert for Ozempic that it contributes to renal failure, but there have been some after market reports of coincident kidney injury. What role Ozempic played in his renal failure is uncertain. He was also during this timeframe taking a lot of ibuprofen for mouth pain, and he said he was taking doses of over thousand milligrams in a single dose a few times a day for several days. This could have certainly contributed to some renal failure. He was also on metformin. His lisinopril has been resumed, but I have recommended that he discontinue Ozempic for the time being, and that he also discontinue metformin. He has a long-acting insulin with a NovoLog sliding scale that he will continue to use until he can receive further guidance from nephrology over whether or not he can use Ozempic once again, which the patient said did a really good job helping control his blood sugar. He had excellent urine output and was eating and drinking without difficulty. His labs and examination were reassuring he was discharged in stable condition. He has some outpatient follow-up labs and will see nephrology in 1 to 2 weeks. Physical Exam Vital Signs: Temp Pulse Resp BP Pulse Ox 98.5 F 81 16 146/86 H 98 02/13/20 12:11 02/13/20 12:11 02/13/20 12:11 02/13/20 12:11 02/13/20 12:11 Intake & Output 02/12/20 02/13/20 02/14/20 06:59 06:59 06:59 Intake Total 2822 3576 477 Output Total 422 1850 850 Balance -1403 1726 -373 Weight 96.8 kg 95.4 kg General appearance: PRESENT: no acute distress Respiratory exam: PRESENT: clear to auscultation violette. ABSENT: crackles Cardiovascular exam: PRESENT: +S1, +S2 GI/Abdominal exam: PRESENT: normal bowel sounds, soft. ABSENT: organomegaly, tenderness Extremities exam: ABSENT: pedal edema Neurological exam: PRESENT: alert, awake, oriented to person, oriented to place Psychiatric exam: PRESENT: appropriate affect Results Laboratory Results: WBC 6.1 10^3/uL (4.0-10.5) 02/13/20 05:45 RBC 3.75 10^6/uL (4.35-5.55) L 02/13/20 05:45 Hgb 11.9 g/dL (13.5-17.0) L 02/13/20 05:45 Hct 33.5 % (37.9-51.0) L 02/13/20 05:45 MCV 90 fl (80-97) 02/13/20 05:45 MCH 31.9 pg (27.0-33.4) 02/13/20 05:45 MCHC 35.6 g/dL (32.0-36.0) 02/13/20 05:45 RDW 12.9 % (11.5-14.0) 02/13/20 05:45 Plt Count 191 10^3/uL (150-450) 02/13/20 05:45 Lymph % (Auto) 10.8 % (13-45) L 02/10/20 05:41 Clare % (Auto) 10.1 % (3-13) 02/10/20 05:41 Eos % (Auto) 0.0 % (0-6) 02/10/20 05:41 Baso % (Auto) 0.2 % (0-2) 02/10/20 05:41 Absolute Neuts (auto) 8.7 10^3/uL (1.7-8.2) H 02/10/20 05:41 Absolute Lymphs (auto) 1.2 10^3/uL (0.5-4.7) 02/10/20 05:41 Absolute Monos (auto) 1.1 10^3/uL (0.1-1.4) 02/10/20 05:41 Absolute Eos (auto) 0.0 10^3/uL (0.0-0.6) 02/10/20 05:41 Absolute Basos (auto) 0.0 10^3/uL (0.0-0.2) 02/10/20 05:41 Total Counted 100 02/09/20 07:05 Seg Neutrophils % 78.9 % (42-78) H 02/10/20 05:41 Seg Neuts % (Manual) 81 % (42-78) H 02/09/20 07:05 Band Neutrophils % 1 % (3-5) L 02/09/20 07:05 Lymphocytes % (Manual) 7 % (13-45) L 02/09/20 07:05 Atypical Lymphs % 1 % (0) 02/09/20 07:05 Monocytes % (Manual) 10 % (3-13) 02/09/20 07:05 Eosinophils % (Manual) 0 % (0-6) 02/09/20 07:05 Basophils % (Manual) 0 % (0-2) 02/09/20 07:05 Abs Neuts (Manual) 19.4 10^3/uL (1.7-8.2) H 02/09/20 07:05 Abs Lymphs (Manual) 1.9 10^3/uL (0.5-4.7) 02/09/20 07:05 Abs Monocytes (Manual) 2.4 10^3/uL (0.1-1.4) H 02/09/20 07:05 Absolute Eos (Manual) 0.0 10^3/uL (0.0-0.6) 02/09/20 07:05 Abs Basophils (Manual) 0.0 10^3/uL (0.0-0.2) 02/09/20 07:05 Platelet Estimate Cancelled 02/10/20 04:29 Large Platelets PRESENT 02/09/20 07:05 Platelet Comment ADEQUATE 02/09/20 07:05 Polychromasia SLIGHT 02/09/20 07:05 Pappenheimer Bodies PRESENT 02/09/20 07:05 PT 15.2 SEC (11.4-15.4) 02/09/20 07:05 INR 1.18 02/09/20 07:05 APTT 27.8 SEC (23.5-35.8) 02/09/20 07:05 VBG pH 6.81 (7.30-7.42) L* 02/09/20 10:02 VBG pCO2 36.2 mmHg (35-63) 02/09/20 10:02 VBG HCO3 5.7 mmol/L (20-32) L 02/09/20 10:02 VBG Base Excess -28.5 mmol/L 02/09/20 10:02 Sodium 142.4 mmol/L (137-145) 02/13/20 05:45 Potassium 4.0 mmol/L (3.6-5.0) 02/13/20 05:45 Chloride 108 mmol/L (98-107) H 02/13/20 05:45 Carbon Dioxide 23 mmol/L (22-30) 02/13/20 05:45 Anion Gap 11 (5-19) 02/13/20 05:45 BUN 29 mg/dL (7-20) H 02/13/20 05:45 Creatinine 2.12 mg/dL (0.52-1.25) H 02/13/20 05:45 Est GFR ( Amer) 39 (>60) L 02/13/20 05:45 Est GFR (Non-Af Amer) Cancelled 02/09/20 21:32 Est GFR (Non-Af Amer) Cancelled 02/09/20 21:32 Est GFR (MDRD) Non-Af 32 (>60) L 02/13/20 05:45 Glucose 154 mg/dL (75-110) H 02/13/20 05:45 POC Glucose 226 mg/dL (70-110) H 02/13/20 11:07 Lactic Acid 18.0 mmol/L (0.7-2.1) H 02/09/20 08:53 Calcium 7.5 mg/dL (8.4-10.2) L 02/13/20 05:45 Phosphorus 5.1 mg/dL (2.5-4.5) H 02/10/20 04:29 Magnesium 2.1 mg/dL (1.6-2.3) D 02/10/20 04:29 Total Bilirubin 0.6 mg/dL (0.2-1.3) 02/09/20 08:53 Direct Bilirubin 0.4 mg/dL (0.0-0.4) 02/09/20 08:53 Neonat Total Bilirubin Not Reportable 02/09/20 08:53 Neonat Direct Bilirubin Not Reportable 02/09/20 08:53 Neonat Indirect Bili Not Reportable 02/09/20 08:53 AST 38 U/L (17-59) 02/09/20 08:53 ALT 34 U/L (<50) 02/09/20 08:53 Alkaline Phosphatase 47 U/L (38-126) 02/09/20 08:53 Creatine Kinase 45 U/L (55-170) L 02/09/20 08:53 CK-MB (CK-2) 5.53 ng/mL (<4.55) H 02/09/20 08:53 Troponin I < 0.012 ng/mL 02/09/20 08:53 Total Protein 6.5 g/dL (6.3-8.2) 02/09/20 08:53 Albumin Cancelled 02/09/20 21:32 EGFR Cancelled 02/09/20 21:32 EGFR Cancelled 02/09/20 21:32 Urine Color YELLOW 02/09/20 08:53 Urine Appearance SLIGHTLY-CLOUDY 02/09/20 08:53 Urine pH 5.0 (5.0-9.0) 02/09/20 08:53 Ur Specific [place] 1.011 02/09/20 08:53 Urine Protein 100 mg/dL (NEGATIVE) H 02/09/20 08:53 Urine Glucose (UA) NEGATIVE mg/dL (NEGATIVE) 02/09/20 08:53 Urine Ketones 20 mg/dL (NEGATIVE) H 02/09/20 08:53 Urine Blood SMALL (NEGATIVE) H 02/09/20 08:53 Urine Nitrite (Reflex) NEGATIVE (NEGATIVE) 02/09/20 08:53 Urine Bilirubin NEGATIVE (NEGATIVE) 02/09/20 08:53 Urine Urobilinogen NEGATIVE mg/dL (<2.0) 02/09/20 08:53 Leukocyte Esterase Rfl NEGATIVE (NEGATIVE) 02/09/20 08:53 Urine RBC (Auto) 1 /HPF 02/09/20 08:53 Urine Bacteria (Auto) TRACE /HPF 02/09/20 08:53 Urine WBC (Reflex) 2 /HPF 02/09/20 08:53 Squamous Epi Cells Auto 1 /HPF 02/09/20 08:53 Urine Mucus (Auto) RARE /LPF 02/09/20 08:53 Urine Creatinine 30.4 mg/dL (Not Estab.) 02/09/20 18:20 Urine Microalbumin 246.8 ug/mL (Not Estab.) 02/09/20 18:20 Microalb/Creat Ratio 812 mg/g creat (0-29) H 02/09/20 18:20 Urine Ascorbic Acid 20 (NEGATIVE) H 02/09/20 08:53 COVID-19 Source See comment 02/09/20 08:13 COVID-19 (JENNI) Not Detected (Not Detect) 02/09/20 08:13 Hep Bs Antigen Negative (Negative) 02/09/20 08:53 Hep Bs Antibody, Quant <3.1 mIU/mL (Immunity>9) L 02/09/20 08:53 Hep B Core Total Ab Negative (Negative) 02/09/20 08:53 HCV Quantitation HCV Not Detected IU/mL (.) 02/09/20 08:53 HCV RNA PCR Test Info Comment (.) 02/09/20 08:53 Slides for Path Review Cancelled 02/10/20 04:29 02/09/20 02/09/20 07:05 08:53 CK-MB (CK-2) Cancelled 5.53 H Troponin I Cancelled < 0.012 Impressions: Chest X-Ray 02/09/20 07:15 IMPRESSION: NO ACUTE RADIOGRAPHIC FINDING IN THE CHEST. Abdomen/Pelvis CT 02/09/20 08:26 IMPRESSION: Right renal findings are nonspecific, and may represent a recently passed stone. Pyelonephritis may have a similar appearance. Other chronic and incidental findings as detailed above. Plan Time Spent: Greater than 30 Minutes Stroke Is this a Stroke Patient?: No Acute Heart Failure Is this a Heart Failure Patient?: No
== END 2020-02-13 13:46 | disposition home or self-care (01) | DRG 683 ==
LOC: ER 06:42 → EH 10:43 → ICU 11:20 → 3W 02-10 20:50
PROVIDERS: ADMIT Anesthesiology; ATTEND Anesthesiology
PROC: 06HM33Z Insertion of Infusion Device into Right Femoral Vein, Percutaneous Approach (ICD-10-PCS; principal; 2020-02-09)
PROC: 5A1D70Z Performance of Urinary Filtration, Intermittent, Less than 6 Hours Per Day (ICD-10-PCS; 2020-02-09)
PROC: 5A1D70Z Performance of Urinary Filtration, Intermittent, Less than 6 Hours Per Day (ICD-10-PCS; 2020-02-10)
DX: N17.0 Acute kidney failure with tubular necrosis (principal); E87.2 Acidosis; I12.9 Hypertensive chronic kidney disease with stage 1 through stage 4 chronic kidney disease, or unspecified chronic kidney disease; E87.5 Hyperkalemia; E11.22 Type 2 diabetes mellitus with diabetic chronic kidney disease; K76.0 Fatty (change of) liver, not elsewhere classified; N18.30 Chronic kidney disease, stage 3 unspecified; K21.9 Gastro-esophageal reflux disease without esophagitis; E86.0 Dehydration; N20.0 Calculus of kidney; Z20.828 Contact with and (suspected) exposure to other viral communicable diseases; Z96.89 Presence of other specified functional implants; Z83.3 Family history of diabetes mellitus; Z82.49 Family history of ischemic heart disease and other diseases of the circulatory system; Z83.438 Family history of other disorder of lipoprotein metabolism and other lipidemia; Z79.84 Long term (current) use of oral hypoglycemic drugs; Z79.899 Other long term (current) drug therapy
CPT/HCPCS: 36415; 71045; 74176; 80048; 80053; 81001; 82043; 82550; 82553; 82570; 82803; 82962; 83605; 83735; 84100; 84132; 84484; 85025; 85027; 85610; 85730; 86317; 86704; 87040; 87340; 87522; 87635; 93005; 93010; 96361; 96365; 96375; 99285; C9803; J0610; J0743; J0780; J1644; J1815; J2270; J3490; J7030; J7120; S0028

== ENCOUNTER 2020-02-22 09:17 | Inpatient (IN) | payer BC ==
[2020-02-22] MEDS ORDERED: NORMAL SALINE 1000 ML 1,000 ML IV ONE ×2 (09:52→14:52)
[2020-02-22 09:58] LABS: ABSOLUTE BASOPHILS # (AUTO) 0.1 10^3/uL (0.0-0.2); ABSOLUTE EOSINOPHILS # (AUTO) 0.3 10^3/uL (0.0-0.6); ABSOLUTE MONOCYTES (AUTO) 1.1 10^3/uL (0.1-1.4); ABSOLUTE NEUT (AUTO) 9.5 10^3/uL (1.7-8.2); BASOPHILS % (AUTO) 0.7 % (0-2); EOSINOPHILS % (AUTO) 2.1 % (0-6); HEMATOCRIT 33.9 % (37.9-51.0); HEMOGLOBIN 11.6 g/dL (13.5-17.0); LYMPHOCYTES % (AUTO) 26.5 % (13-45); MEAN CORPUSCULAR HEMOGLOBIN 30.8 pg (27.0-33.4); MEAN CORPUSCULAR HGB CONC 34.1 g/dL (32.0-36.0); MEAN CORPUSCULAR VOLUME 90 fl (80-97); MONOCYTES % (AUTO) 7.4 % (3-13); RED BLOOD COUNT 3.76 10^6/uL (4.35-5.55); RED CELL DISTRIBUTION WIDTH 13.2 % (11.5-14.0); SEGMENTED NEUTROPHILS % (AUTO) 63.3 % (42-78); TOTAL CELLS COUNTED % (AUTO) 100 %
--- NOTE | 2020-02-22 10:09 | RADIOLOGY REPORT (SQ) ---
EXAM DESCRIPTION: CHEST SINGLE VIEW IMAGES COMPLETED DATE/TIME: 02/22/2020 9:57 am REASON FOR STUDY: cp COMPARISON: 02/09/2020 EXAM PARAMETERS: NUMBER OF VIEWS: One view. TECHNIQUE: Single frontal radiographic view of the chest acquired. RADIATION DOSE: NA LIMITATIONS: None. FINDINGS: LUNGS AND PLEURA: No opacities, masses or pneumothorax. No pleural effusion. MEDIASTINUM AND HILAR STRUCTURES: No masses. Contour normal. HEART AND VASCULAR STRUCTURES: Heart normal in size. Normal vasculature. BONES: No acute findings. HARDWARE: None in the chest. OTHER: No other significant finding. IMPRESSION: NO ACUTE RADIOGRAPHIC FINDING IN THE CHEST. TECHNICAL DOCUMENTATION: JOB ID: [id number] 2010 [employer]- All Rights Reserved Reading location - IP/workstation name: [email or web address]
[2020-02-22 10:11] LABS: ALBUMIN 3.5 g/dL (3.5-5.0); ALKALINE PHOSPHATASE 95 U/L (38-126); ANION GAP 17 (5-19); ASPARTATE AMINO TRANSFERASE 95 U/L (17-59); BILIRUBIN,DIRECT 0.7 mg/dL (0.0-0.4); BILIRUBIN,TOTAL 1.4 mg/dL (0.2-1.3); BLOOD UREA NITROGEN 17 mg/dL (7-20); CALCIUM 8.8 mg/dL (8.4-10.2); CARBON DIOXIDE 21 mmol/L (22-30); CHLORIDE 100 mmol/L (98-107); CREATINE KINASE 67 U/L (55-170); GLUCOSE 316 mg/dL (75-110); POTASSIUM 3.5 mmol/L (3.6-5.0); TOTAL PROTEIN 6.1 g/dL (6.3-8.2)
[2020-02-22 10:23] LABS: CREATINE KINASE MB 1.89 ng/mL (<4.55); TROPONIN I 0.027 ng/mL
[2020-02-22 10:27] LABS: PLATELET COUNT 36 10^3/uL (150-450)
[2020-02-22 10:44] LABS: INTERNATIONAL RATION (INR) 1.08; PROTHROMBIN TIME 14.2 SEC (11.4-15.4)
[2020-02-22 10:54] LABS: VENOUS BLOOD BASE EXCESS -5.1 mmol/L; VENOUS BLOOD HCO3 22.4 mmol/L (20-32); VENOUS BLOOD PCO2 50.7 mmHg (35-63); VENOUS BLOOD PH 7.26 (7.30-7.42)
[2020-02-22] MEDS ORDERED: LIDOCAINE 2% INJ-PF (100 MG/5 ML) SYRINGE ONE (11:01)
[2020-02-22] MEDS ORDERED: SODIUM BICARBONATE 8.4% INJ 50 MEQ/50 ML DISP.SYRIN ONE (11:01)
[2020-02-22] MEDS ORDERED: EPINEPHRINE INJ 1 MG/10 ML DISP.SYRIN ONE (11:01)
[2020-02-22] MEDS ORDERED: CEFEPIME 2 GM/D5W RTU 2 GM/50 ML RTUPB IV ONE (11:17)
[2020-02-22] MEDS ORDERED: HEPARIN SODIUM,PORCINE/D5W 25,000 UNIT/250 ML RTUINJ IV PRN (14:04)
[2020-02-22] MEDS ORDERED: HEPARIN SOD (PORCINE) 1,000 UNIT/ML 10 ML VIAL IV ONE (14:04)
--- NOTE | 2020-02-22 14:10 | RADIOLOGY REPORT (SQ) ---
EXAM DESCRIPTION: CTA CHEST IMAGES COMPLETED DATE/TIME: 02/22/2020 1:52 pm REASON FOR STUDY: sob/pain COMPARISON: None. TECHNIQUE: CT scan of the chest performed using helical scanning technique with dynamic intravenous contrast injection. Images reviewed with lung, soft tissue and bone windows. Reconstructed coronal and sagittal MPR images reviewed. Additional 3 dimensional post-processing performed to develop Maximal Intensity Projection images (GA P). All images stored on PACS. All CT scanners at this facility use dose modulation, iterative reconstruction, and/or weight based d osing when appropriate to reduce radiation dose to as low as reasonably achievable (ALARA). [facility]: Dose Right [facility]: CareDose [facility]: Dose Right [facility]: Teradose 4D [facility]: SolarEdge CONTRAST TYPE AND DOSE: contrast/concentration: Isovue 350.00 mmol/ml; Total Contrast Delivered: 75. 0 ml; Total Saline Delivered: 71.0 ml Contrast bolus optimized for the pulmonary arteries. Not diagnostic for the aorta. RENAL FUNCTION: BUN 17, creatinine 1.46 RADIATION DOSE: CT Rad equipment meets quality standard of care and radiation dose reduction techniq ues were employed. CTDIvol: 13.2 - 16.7 mGy. DLP: 672 mGy-cm. . LIMITATIONS: None. FINDINGS: LUNGS AND PLEURA: No masses, infiltrates, or pneumothorax. No pleural effusions or pleura l calcifications. AORTA AND GREAT VESSELS: No aneurysm. Contrast bolus not optimized for the aorta. HEART: No pericardial effusion. Right ventricular prominence consistent with right heart strain. PULMONARY ARTERIES: Large right and left main central pulmonary emboli with widespread segmental and sub segmental emboli. HILAR AND MEDIASTINAL STRUCTURES: No identified masses or abnormal nodes. HARDWARE: None in the chest. UPPER ABDOMEN: No significant findings. Limited exam. THYROID AND OTHER SOFT TISSUES: No masses. No adenopathy. BONES: No acute or significant finding. 3D MIPS: Confirm above findings. OTHER: No other significant finding. IMPRESSION: Large bilateral pulmonary emboli in the main pulmonary arteries as well as segmental and subsegmental branches. Evidence of right sided heart strain with right ventricular dilatation. No evidence of pulmonary infarction. COMMENT: This report was called to CUATE FENG MD at14:04 on 02/22/2020. Quality ID # [id number]: Final reports with documentation of one or more dose reduction techniques (e.g., Au tomated exposure control, adjustment of the mA and/or kV according to patient size, use of iterative reconstruction technique) TECHNICAL DOCUMENTATION: JOB ID: [id number] 2010 [employer]- All Rights Reserved Reading location - IP/workstation name: [email or web address]
[2020-02-22 14:31] LABS: APPEARANCE,URINE SLIGHTLY-CLOUDY; BILIRUBIN,URINE NEGATIVE (NEGATIVE); COLOR,URINE YELLOW; GLUCOSE, URINE >=500 mg/dL (NEGATIVE); KETONES,URINE TRACE mg/dL (NEGATIVE); PROTEIN,URINE 100 mg/dL (NEGATIVE); UROBILINOGEN,URINE NEGATIVE mg/dL (<2.0)
--- NOTE | 2020-02-22 14:58 | ER Document Report ---
ED General - General Chief Complaint: Chest Pain Stated Complaint: WEAKNESS Time Seen by Provider: 02/22/20 09:47 Primary Care Provider: GUANAKO ALVARADO NP [Primary Care Provider] - Follow up as needed Mode of Arrival: Medic Information source: Patient - [facility] Notes: Patient presents complaining of shortness of breath weakness and chest pain. It started yesterday patient states he got worse this morning. He states he was recently in the hospital for renal failure and had to have dialysis. He states he has no previous cardiac history. He states the chest pain was constant and a pressure sensation. It was substernal. No significant radiation. He states the pain and shortness of breath seem to get worse with exertion and slightly better with rest. Patient has not had fever or coughing. He states he was told that his kidney failed secondary to antibiotic and Motrin use secondary to a sore tooth. - Related Data Allergies/Adverse Reactions: No Known Allergies Allergy (Verified 02/09/20 11:21) Home Medications: metoprolol, lisinopril, levastatin, clindomycin Past Medical History - General Information source: Patient - Social History Smoking Status: Former Smoker Frequency of alcohol use: None Drug Abuse: None Family History: None, CAD Patient has homicidal ideation: No - Past Medical History Cardiac Medical History: Reports: Hx Hypercholesterolemia Denies: Hx Coronary Artery Disease, Hx Hypertension Pulmonary Medical History: Denies: Hx Tuberculosis Endocrine Medical History: Reports: Hx Diabetes Mellitus Type 2 GI Medical History: Reports: Hx Gastroesophageal Reflux Disease, Hx Hiatal Hernia - 10-15 yrs ago Psychiatric Medical History: Denies: Hx Depression Traumatic Medical History: Reports: Hx Fractures - hand, ankle Past Surgical History: Reports: Hx Herniorrhaphy - In infancy, Other - 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 Denies: Hx Pacemaker, Hx Tonsillectomy - Immunizations Hx Diphtheria, Pertussis, Tetanus Vaccination: Yes - 05/31/12 Review of Systems - Review of Systems Constitutional: denies: Chills, Fever Cardiovascular: Chest pain, Palpitations Respiratory: Short of breath. denies: Cough -: Yes All other systems reviewed and negative Physical Exam - Vital signs Vitals: Resp Pulse Ox 14 100 02/22/20 09:47 02/22/20 09:47 Interpretation: Hypotensive, Tachycardic, Hypoxic - General General appearance: Alert, Anxious - HEENT Head: Normocephalic, Atraumatic Eyes: Normal Pupils: PERRL - Respiratory Respiratory status: No respiratory distress Chest status: Nontender Breath sounds: Decreased air movement Chest palpation: Normal - Cardiovascular Rhythm: Regular, Tachycardia Heart sounds: Normal auscultation Murmur: No Pulses: Decreased: Radial - Abdominal Inspection: Normal Distension: No distension Bowel sounds: Normal Tenderness: Nontender Organomegaly: No organomegaly - Back Back: Normal, Nontender - Extremities General upper extremity: Normal inspection, Nontender, Normal color, Normal ROM, Normal temperature General lower extremity: Normal inspection, Nontender, Normal color, Normal ROM, Normal temperature, Normal weight bearing. No: Edelmira's sign - Neurological Neuro grossly intact: Yes Cognition: Normal Orientation: AAOx4 Adarsh Coma Scale Eye Opening: Spontaneous Adarsh Coma Scale Verbal: Oriented Adarsh Coma Scale Motor: Obeys Commands Adarsh Coma Scale Total: 15 Speech: Normal Motor strength normal: LUE, RUE, LLE, RLE Sensory: Normal - Psychological Associated symptoms: Normal affect, Normal mood - Skin Skin Temperature: Warm Skin Moisture: Dry Skin Color: Normal Course - Re-evaluation Re-evalutation: 02/22/20 15:01 Patient presented with hypotension and hypoxia. Patient had a recent catheter in the right femoral vein for dialysis. This is been removed a little over a week ago apparently. Patient now presents with a large saddle embolus per CT scan. Most likely secondary to the foreign body as I do not appreciate any other risk factors. Patient's blood pressures been corrected with fluids. He initially was placed on BiPAP and is now on a nonrebreather with sats of 100%. Not significantly tachypneic. He is mildly tachycardic in the 120s but he states he has chronic tachycardia and sees a java project manager for this. - Vital Signs Vital signs: Temp Pulse Resp BP Pulse Ox 14 100 02/22/20 09:47 02/22/20 09:47 - Laboratory Result Diagrams: 02/22/20 09:35 02/22/20 09:35 Laboratory results interpreted by me: 02/22/20 02/22/20 02/22/20 09:35 09:35 09:35 WBC 15.0 H RBC 3.76 L Hgb 11.6 L Hct 33.9 L Plt Count 36 L Absolute Neuts (auto) 9.5 H VBG pH 7.26 L Potassium 3.5 L Carbon Dioxide 21 L Creatinine 1.46 H Est GFR (MDRD) Non-Af 50 L Glucose 316 H Lactic Acid Total Bilirubin 1.4 H Direct Bilirubin 0.7 H AST 95 H ALT 62 H Total Protein 6.1 L Urine Protein Urine Glucose (UA) Urine Ketones 02/22/20 02/22/20 09:35 14:10 WBC RBC Hgb Hct Plt Count Absolute Neuts (auto) VBG pH Potassium Carbon Dioxide Creatinine Est GFR (MDRD) Non-Af Glucose Lactic Acid 5.2 H Total Bilirubin Direct Bilirubin AST ALT Total Protein Urine Protein 100 H Urine Glucose (UA) >=500 H Urine Ketones TRACE H - Diagnostic Test Radiology reviewed: Image reviewed, Reports reviewed - EKG Interpretation by Me EKG shows normal: Sinus rhythm Rate: Tachycardia - 132 Rhythm: NSR [place]/QRS: RBBB Critical Care Note - Critical Care Note Total time excluding time spent on procedures (mins): 60 Comments: Approximate 60 minutes of critical care time were spent on this patient who was hypoxic and hypotensive with a large saddle embolus. This time was spent doing multiple reassessments. No spent talking with multiple consultants. It was spent reviewing old records. It was spent reviewing imaging and laboratory values. Discharge - Discharge Clinical Impression: Acidosis Saddle pulmonary embolus Qualifiers: Chronicity: acute Acute cor pulmonale presence: with acute cor pulmonale Qualified Code(s): I26.02 - Saddle embolus of pulmonary artery with acute cor pulmonale Condition: Critical Disposition: ADMITTED INPATIENT Unit Admitted: ICU Referrals: GUANAKO ALVARADO NP [Primary Care Provider] - Follow up as needed
--- NOTE | 2020-02-22 15:45 | CRITICAL CARE ADMISSION REPORT ---
HPI Date:: 02/22/20 Time:: 14:30 Reason for ICU Reason:: Large saddle PE with R heart strain. Admission Date/Time & PCP: Admission Date/Time: Primary Care Provider: GUANAKO ALVARADO NP HPI: This patient is a 59 yo man recently at [facility] for ARF and STAT dialysis. He was discharged and was doing well until this AM when he had dizziness, chest pain and came to the ED where a large saddle PE was found. He is somewhat SOB while talking and tachycardic with movement indicating clinical heart strain in addition to CTA evidence as well. Echo pending. The patient is not in shock, CV collapse and is really not a candidate for thrombolytics. He will need IVF for R heart and heparin. History obtained from:: Patient, old records and Dr. Diallo. - Diagnosis/Plan (1) Saddle pulmonary embolus Qualifiers: Chronicity: acute Acute cor pulmonale presence: with acute cor pulmonale Qualified Code(s): I26.02 - Saddle embolus of pulmonary artery with acute cor pulmonale Is this a current diagnosis for this admission?: Yes Plan: Will need heparin drip, no thrombolytics and ICU monitoring because of symptoms, troponin elavation, SOB. Echo pending. (2) Dehydration Is this a current diagnosis for this admission?: Yes Plan: He felt dehydrated before admission. Now with dye load, R heart strain, he will need more fluid. (3) Diabetes mellitus type 2 with complications Is this a current diagnosis for this admission?: Yes Plan: Needs better control with insulin. (4) Hypertension Qualifiers: Hypertension type: essential hypertension Qualified Code(s): I10 - Essential (primary) hypertension Is this a current diagnosis for this admission?: Yes Plan: Controlled Plan Summary: ICU placement, IVF and heparin. NOAC or coumadin depending on CR and GFR. 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 Denies: Pacemaker, Tonsillectomy Social/Family History - Social History Smoking Status: Former Smoker Frequency of Alcohol Use: None Hx Recreational Drug Use: No Hx Prescription Drug Abuse: No - Medication/Allergies Home Medications: Lisinopril [Prinivil 20 mg Tablet] 20 mg PO DAILY 05/31/12 Insulin Glargine,Hum.rec.anlog [Basaglar Kwikpen U-100] 60 unit SQ QHS 02/09/20 Lovastatin 40 mg PO DAILY 02/09/20 Metoprolol Succinate [Toprol Xl 25 mg Tab.sr] 25 mg PO Q12 02/09/20 Clindamycin HCl [Cleocin 150 mg Capsule] 150 mg PO Q6 02/22/20 Insulin Aspart [Novolog Flexpen] 0 unit SUBCUT .SLD SCALE 02/22/20 Allergies/Adverse Reactions: No Known Allergies Allergy (Verified 02/09/20 11:21) Review of Systems Constitutional: PRESENT: weakness Eyes: ABSENT: visual disturbances Ears: ABSENT: hearing changes Cardiovascular: PRESENT: chest pain, dyspnea on exertion Respiratory: PRESENT: dyspnea Gastrointestinal: ABSENT: abdominal pain, constipation, diarrhea, hematemesis, hematochezia, nausea, vomiting Genitourinary: ABSENT: dysuria, hematuria Musculoskeletal: ABSENT: joint swelling Integumentary: ABSENT: rash, wounds Neurological: ABSENT: abnormal gait, abnormal speech, confusion, dizziness, focal weakness, syncope Psychiatric: ABSENT: anxiety, depression, homidical ideation, suicidal ideation Physical Exam Vital Signs: Temp Pulse Resp BP Pulse Ox 14 100 02/22/20 09:47 02/22/20 09:47 Intake & Output 02/21/20 02/22/20 02/23/20 06:59 06:59 06:59 Intake Total 1050 Balance 1050 Weight 93.894 kg Weight/Height Weight 93.894 kg Height 6 ft 4 in General appearance: PRESENT: no acute distress, cooperative Head exam: PRESENT: atraumatic, normocephalic Eye exam: PRESENT: conjunctiva pink, EOMI, PERRLA. ABSENT: scleral icterus Ear exam: PRESENT: normal external ear exam Mouth exam: PRESENT: dry mucosa Respiratory exam: PRESENT: clear to auscultation violette. ABSENT: rales, rhonchi, wheezes Cardiovascular exam: PRESENT: tachycardia GI/Abdominal exam: PRESENT: normal bowel sounds, soft. ABSENT: distended, guarding, mass, organolmegaly, rebound, tenderness Rectal exam: PRESENT: deferred Extremities exam: PRESENT: full ROM, other - Hematoma resolving where HD catheter was.. ABSENT: calf tenderness, clubbing, pedal edema Neurological exam: PRESENT: alert, awake, oriented to person, oriented to place, oriented to time, oriented to situation, CN II-XII grossly intact. ABSENT: motor sensory deficit Skin exam: PRESENT: mottled - Slight in knees. Laboratory/Radiographs Laboratory Results: 02/22/20 09:35 02/22/20 09:35 02/22/20 02/22/20 02/22/20 09:35 09:35 09:35 WBC 15.0 H RBC 3.76 L Hgb 11.6 L Hct 33.9 L MCV 90 MCH 30.8 MCHC 34.1 RDW 13.2 Plt Count 36 L Seg Neutrophils % 63.3 VBG pH 7.26 L VBG pCO2 50.7 VBG HCO3 22.4 VBG Base Excess -5.1 Sodium 137.5 Potassium 3.5 L Chloride 100 Carbon Dioxide 21 L Anion Gap 17 BUN 17 Creatinine 1.46 H Est GFR ( Amer) > 60 Glucose 316 H Lactic Acid Calcium 8.8 Total Bilirubin 1.4 H AST 95 H Alkaline Phosphatase 95 Total Protein 6.1 L Albumin 3.5 Urine Color Urine Appearance Urine pH Ur Specific [place] Urine Protein Urine Glucose (UA) Urine Ketones Urine Blood Urine RBC (Auto) 02/22/20 02/22/20 02/22/20 09:35 13:00 14:10 WBC RBC Hgb Hct MCV MCH MCHC RDW Plt Count Seg Neutrophils % VBG pH VBG pCO2 VBG HCO3 VBG Base Excess Sodium Potassium Chloride Carbon Dioxide Anion Gap BUN Creatinine Est GFR ( Amer) Glucose Lactic Acid 5.2 H 1.6 Calcium Total Bilirubin AST Alkaline Phosphatase Total Protein Albumin Urine Color YELLOW Urine Appearance SLIGHTLY-CLOUDY Urine pH 5.0 Ur Specific [place] 1.030 Urine Protein 100 H Urine Glucose (UA) >=500 H Urine Ketones TRACE H Urine Blood NEGATIVE Urine RBC (Auto) 1 02/22/20 02/22/20 02/22/20 09:35 09:35 13:00 Creatine Kinase 67 CK-MB (CK-2) 1.89 Troponin I 0.027 0.438 Impressions: Chest X-Ray 02/22/20 09:26 IMPRESSION: NO ACUTE RADIOGRAPHIC FINDING IN THE CHEST. Chest/Abdomen CTA 02/22/20 10:55 IMPRESSION: Large bilateral pulmonary emboli in the main pulmonary arteries as well as segmental and subsegmental branches. Evidence of right sided heart strain with right ventricular dilatation. No evidence of pulmonary infarction. EKG: ST and RBBB. All labs, radiographs, diagnostic studies and EKGs were personally reviewed: Yes In addition, reports of radiographic and diagnostic studies were read: Yes Critical Time Critical Time (minutes): 40 -: The care of a critically ill patient is dynamic. This note represents a static moment in the admission process. Orders and treatments may be given simultaneously and urgently, and time is not sales representative church furniture of the treatment process. This patient requires Critical Care secondary to life threatening organ or limb dysfunction. Without Critical Care services, the patient is at risk for increased mortality and morbidity.
[2020-02-22] MEDS ORDERED: IPRATROPIUM/ALBUTEROL 0.5-2.5 MG/3 ML AMPUL NEB PRN (15:46)
[2020-02-22] MEDS ORDERED: RINGERS SOLUTION,LACTATED 1,000 ML IV PRN (15:46)
[2020-02-22] MEDS ORDERED: DEXTROSE 40% GEL 15 GM TUBE PO PRN ×2 (15:55)
[2020-02-22] MEDS ORDERED: GLUCAGON,HUMAN RECOMB 1 MG INJ IM PRN (15:55)
[2020-02-22] MEDS ORDERED: DEXTROSE 50%-WATER 25 GM/50 ML DISP.SYRIN IV PRN ×2 (15:55)
[2020-02-22] MEDS: INSULIN REG, HUMAN 100 UNIT/ML 3 ML VIAL (PYX) SUBCUT SCH ×2 (17:43→23:24)
[2020-02-22] MEDS: CLINDAMYCIN HCL 150 MG CAPSULE PO SCH ×2 (18:20→23:24)
--- NOTE | 2020-02-22 19:29 | XCELERA REPORT ---
[address] [address] Transthoracic Echocardiogram Report Name: OSEAS AYERS III Age: 59 yrs Gender: Male : 1960 Patient Status: Inpatient Patient Location: ICU^[id number] Study Date: 02/22/2020 05:33 PM History: PE Height: 76 in Weight: 207 lb BSA: 2.2 m2 Procedure: A complete two-dimensional transthoracic echocardiogram was performed (2D, M-mode, spectral and color flow Doppler). The study was technically difficult with many images being suboptimal in quality. Reason For Study: pe/hypoxic/low bp/eval right heart Previous Evaluation: No previous studies were available. History: PE. Ordering Physician: CUATE FENG Performed By: Yancy Sharp Interpretation Summary The left ventricle is normal in size. Due to the poor quality of the echocardiogram, an assessment of left ventricular ejection fraction cannot be made. Best estimate is 45-50%.. Interventricular septum is flattened in systole and diastole. This suggests RV pressure and volume overload In limited views RV is dilated-not completely visualized The right ventricular systolic function is mild to moderately reduced. There is no aortic valve stenosis There is no pericardial effusion. MMode/2D Measurements & Calculations RVDd: 3.0 cm LVIDd: 3.5 cm FS: 16.5 % Ao root diam: 3.4 cm IVSd: 1.9 cm LVIDs: 3.0 cm EDV(Teich): 52.2 ml Ao root area: 9.3 cm2 LVPWd: 0.99 cm ESV(Teich): 33.7 ml LA dimension: 2.5 cm EF(Teich): 35.3 % Doppler Measurements & Calculations MV E max gage: MV P1/2t max gage: Ao V2 max: LV V1 max P.5 cm/sec 102.6 cm/sec 76.9 cm/sec 2.6 mmHg MV A max gage: MV P1/2t: 31.1 msec Ao max PG: LV V1 max: 61.9 cm/sec MVA(P1/2t): 7.1 cm2 2.4 mmHg 80.1 cm/sec MV E/A: 1.7 MV dec slope: 966.6 cm/sec2 MV dec time: 0.10 sec PA V2 max: MV P1/2t-pr_phl: 33.3 cm/sec 31.1 msec PA max P.44 mmHg Left Ventricle The left ventricle is normal in size. There is moderate concentric left ventricular hypertrophy. Due to the poor quality of the echocardiogram, an assessment of left ventricular ejection fraction cannot be made. Best estimate is 45-50%.. LV diastolic function could not be adequately assessed. Regional wall motion abnormalities cannot be excluded due to limited visualization. Right Ventricle The right ventricle is not well visualized secondary to technical limitations. Interventricular septum is flattened in systole and diastole. This suggests RV pressure and volume overload In limited views RV is dilated-not completely visualized. The right ventricular systolic function is mild to moderately reduced. Atria The right atrium is moderately dilated. The left atrial size is normal. The interatrial septum is intact with no evidence for an atrial septal defect. There is no Doppler evidence for an interatrial shunt. Mitral Valve The mitral valve is grossly normal. There is no mitral regurgitation noted. Aortic Valve The aortic valve is trileaflet. The aortic valve opens well. The aortic valve is normal in structure and function. There is no aortic valve stenosis. No aortic regurgitation is present. Tricuspid Valve The tricuspid valve is not well visualized, but is grossly normal. There is a trace amount of tricuspid regurgitation. Tricuspid regurgitation jet envelope not well defined to measure RV systolic pressure accurately. Pulmonic Valve The pulmonic valve is not well visualized. Great Vessels The aortic root is normal size. The inferior vena cava appeared normal and decreased > 50% with respiration (RAP 5-10 mmHg). Effusions There is no pericardial effusion. : CUATE FENG Anil
[2020-02-22] MEDS ORDERED: MAG HYDROX/AL HYDROX/SIMETH SUSP 30 ML UDCUP PO PRN (19:57)
[2020-02-22] MEDS: MORPHINE SULFATE 10 MG/ML INJ IV PRN (20:06)
[2020-02-22 20:41] LABS: ABSOLUTE BASOPHILS # (AUTO) 0.1 10^3/uL (0.0-0.2); ABSOLUTE EOSINOPHILS # (AUTO) 0.1 10^3/uL (0.0-0.6); ABSOLUTE LYMPHOCYTES (AUTO) 1.9 10^3/uL (0.5-4.7); ABSOLUTE MONOCYTES (AUTO) 0.8 10^3/uL (0.1-1.4); ABSOLUTE NEUT (AUTO) 8.8 10^3/uL (1.7-8.2); BASOPHILS % (AUTO) 0.6 % (0-2); EOSINOPHILS % (AUTO) 0.5 % (0-6); HEMOGLOBIN 12.5 g/dL (13.5-17.0); LYMPHOCYTES % (AUTO) 16.5 % (13-45); MEAN CORPUSCULAR HEMOGLOBIN 31.1 pg (27.0-33.4); MEAN CORPUSCULAR HGB CONC 35.8 g/dL (32.0-36.0); MEAN CORPUSCULAR VOLUME 87 fl (80-97); MONOCYTES % (AUTO) 6.5 % (3-13); RED BLOOD COUNT 4.03 10^6/uL (4.35-5.55); RED CELL DISTRIBUTION WIDTH 13.4 % (11.5-14.0); SEGMENTED NEUTROPHILS % (AUTO) 75.9 % (42-78); TOTAL CELLS COUNTED % (AUTO) 100 %; WHITE BLOOD COUNT 11.6 10^3/uL (4.0-10.5)
[2020-02-22 21:12] LABS: PLATELET COUNT 39 10^3/uL (150-450)
[2020-02-22] MEDS ORDERED: INSULIN GLARGINE HUM REC ANLOG 60 UNIT SQ SCH (22:00)
[2020-02-22] MEDS ORDERED: POTASSIUM CHLORIDE 10 MEQ TABLET.ER PO ONE (22:00)
--- NOTE | 2020-02-22 22:10 | EKG REPORT ---
SEVERITY:- ABNORMAL ECG - SINUS TACHYCARDIA RBBB AND LAFB : Confirmed by: Elisa Marcus 22-Feb-2020 22:09:08
[2020-02-22] MEDS: ATORVASTATIN CALCIUM 10 MG TABLET PO SCH (22:33)
[2020-02-22] MEDS: FAMOTIDINE 20 MG TABLET PO SCH (22:33)
[2020-02-22] MEDS: INSULIN GLARGINE,HUM.REC.ANLOG 1,000 UNIT/10 ML VIAL SUBCUT SCH (22:35)
[2020-02-22] MEDS: NORMAL SALINE 250 ML with ARGATROBAN 250 MG IV PRN ×2 (22:38)
[2020-02-23 00:15] LABS: ALBUMIN 3.6 g/dL (3.5-5.0); ALKALINE PHOSPHATASE 84 U/L (38-126); ANION GAP 10 (5-19); ASPARTATE AMINO TRANSFERASE 68 U/L (17-59); BILIRUBIN,DIRECT 0.5 mg/dL (0.0-0.4); BILIRUBIN,TOTAL 0.9 mg/dL (0.2-1.3); BLOOD UREA NITROGEN 18 mg/dL (7-20); CALCIUM 8.6 mg/dL (8.4-10.2); CARBON DIOXIDE 21 mmol/L (22-30); CHLORIDE 106 mmol/L (98-107); GLUCOSE 217 mg/dL (75-110); TOTAL PROTEIN 6.5 g/dL (6.3-8.2)
[2020-02-23 00:27] LABS: POTASSIUM 4.9 mmol/L (3.6-5.0)
[2020-02-23] MEDS: CLINDAMYCIN HCL 150 MG CAPSULE PO SCH ×5 (02:08→23:06)
[2020-02-23 03:36] LABS: ABSOLUTE BASOPHILS # (AUTO) 0.1 10^3/uL (0.0-0.2); ABSOLUTE EOSINOPHILS # (AUTO) 0.1 10^3/uL (0.0-0.6); ABSOLUTE MONOCYTES (AUTO) 0.8 10^3/uL (0.1-1.4); ABSOLUTE NEUT (AUTO) 8.7 10^3/uL (1.7-8.2); BASOPHILS % (AUTO) 0.9 % (0-2); EOSINOPHILS % (AUTO) 0.7 % (0-6); HEMATOCRIT 33.5 % (37.9-51.0); HEMOGLOBIN 11.9 g/dL (13.5-17.0); LYMPHOCYTES % (AUTO) 17.2 % (13-45); MEAN CORPUSCULAR HEMOGLOBIN 30.8 pg (27.0-33.4); MEAN CORPUSCULAR HGB CONC 35.4 g/dL (32.0-36.0); MEAN CORPUSCULAR VOLUME 87 fl (80-97); MONOCYTES % (AUTO) 7.2 % (3-13); RED BLOOD COUNT 3.85 10^6/uL (4.35-5.55); RED CELL DISTRIBUTION WIDTH 13.1 % (11.5-14.0); TOTAL CELLS COUNTED % (AUTO) 100 %; WHITE BLOOD COUNT 11.8 10^3/uL (4.0-10.5)
[2020-02-23 03:45] LABS: ANION GAP 11 (5-19); BLOOD UREA NITROGEN 19 mg/dL (7-20); CALCIUM 8.5 mg/dL (8.4-10.2); CARBON DIOXIDE 21 mmol/L (22-30); CHLORIDE 106 mmol/L (98-107); GLUCOSE 193 mg/dL (75-110); POTASSIUM 4.9 mmol/L (3.6-5.0)
[2020-02-23 04:01] LABS: PLATELET COUNT 36 10^3/uL (150-450)
[2020-02-23] MEDS: INSULIN REG, HUMAN 100 UNIT/ML 3 ML VIAL (PYX) SUBCUT SCH ×4 (05:52→21:19)
[2020-02-23] MEDS ORDERED: RINGERS SOLUTION,LACTATED 1,000 ML IV PRN (05:55)
[2020-02-23 06:57] LABS: ABSOLUTE BASOPHILS # (AUTO) 0.1 10^3/uL (0.0-0.2); ABSOLUTE EOSINOPHILS # (AUTO) 0.2 10^3/uL (0.0-0.6); ABSOLUTE LYMPHOCYTES (AUTO) 2.1 10^3/uL (0.5-4.7); ABSOLUTE MONOCYTES (AUTO) 0.8 10^3/uL (0.1-1.4); ABSOLUTE NEUT (AUTO) 8.5 10^3/uL (1.7-8.2); BASOPHILS % (AUTO) 0.9 % (0-2); EOSINOPHILS % (AUTO) 1.4 % (0-6); HEMATOCRIT 35.3 % (37.9-51.0); HEMOGLOBIN 12.4 g/dL (13.5-17.0); MEAN CORPUSCULAR HEMOGLOBIN 30.8 pg (27.0-33.4); MEAN CORPUSCULAR HGB CONC 35.1 g/dL (32.0-36.0); MEAN CORPUSCULAR VOLUME 88 fl (80-97); RED BLOOD COUNT 4.01 10^6/uL (4.35-5.55); RED CELL DISTRIBUTION WIDTH 13.7 % (11.5-14.0); SEGMENTED NEUTROPHILS % (AUTO) 72.7 % (42-78); TOTAL CELLS COUNTED % (AUTO) 100 %; WHITE BLOOD COUNT 11.7 10^3/uL (4.0-10.5)
[2020-02-23 07:40] LABS: PLATELET COUNT 43 10^3/uL (150-450)
[2020-02-23] MEDS ORDERED: INFLUENZA QUAD (6MOS+) 2020-21 VAC 0.5 ML SYR IM ONE (08:00)
--- NOTE | 2020-02-23 08:59 | EKG REPORT ---
SEVERITY:- ABNORMAL ECG - SINUS TACHYCARDIA INCOMPLETE RBBB AND LAFB BORDERLINE PROLONGED QT INTERVAL : Confirmed by: Elisa Marcus 23-Feb-2020 08:58:01
--- NOTE | 2020-02-23 08:59 | EKG REPORT ---
SEVERITY:- ABNORMAL ECG - SINUS TACHYCARDIA INCOMPLETE RBBB AND LAFB : Confirmed by: Elisa Marcus 23-Feb-2020 08:57:56
[2020-02-23] MEDS ORDERED: (PENDING PHARMACY ID) (Lovastatin [Lovastatin] 40 MG) PO SCH (10:00)
[2020-02-23] MEDS: FAMOTIDINE 20 MG TABLET PO SCH ×2 (10:51→21:25)
--- NOTE | 2020-02-23 12:41 | PDOC CRITICAL CARE PROG REPORT ---
General Date:: 02/23/20 ICU Day:: 2 Hospital Day:: 2 Resuscitation Status: Full Code Events in the past 12 to 24 Hours:: Improved oxygenation, speech stronger. Still SOB with exertion Review of systems relevant to events:: CV Reason for ICU Addmission:: Large saddle PE with R heart strain. - Medications: Medications reviewed and adjusted accordingly: Yes Vasopressors:: None Sedation:: None Physical Exam Vital Signs: Temp Pulse Resp BP Pulse Ox 97.7 F 60 16 130/105 H 97 02/23/20 10:00 02/23/20 10:00 02/23/20 11:00 02/23/20 10:33 02/23/20 11:00 Intake & Output 02/22/20 02/23/20 02/24/20 06:59 06:59 06:59 Intake Total 2279 Output Total 200 450 Balance 2079 -450 Weight 93.3 kg Weight/Height Weight 93.3 kg Height 6 ft 4 in General appearance: PRESENT: no acute distress, well-developed, well-nourished Head exam: PRESENT: atraumatic, normocephalic Eye exam: PRESENT: conjunctiva pink, EOMI, PERRLA. ABSENT: scleral icterus Ear exam: PRESENT: normal external ear exam Mouth exam: PRESENT: moist, tongue midline Respiratory exam: PRESENT: clear to auscultation [place]. ABSENT: rales, rhonchi, wheezes Cardiovascular exam: PRESENT: tachycardia GI/Abdominal exam: PRESENT: normal bowel sounds, soft. ABSENT: distended, guarding, mass, organolmegaly, rebound, tenderness Rectal exam: PRESENT: deferred Extremities exam: PRESENT: full ROM. ABSENT: calf tenderness, clubbing, pedal edema Musculoskeletal exam: PRESENT: normal inspection Neurological exam: PRESENT: alert, awake, oriented to person, oriented to place, oriented to time, oriented to situation, CN II-XII grossly intact. ABSENT: motor sensory deficit Psychiatric exam: PRESENT: appropriate affect, normal mood. ABSENT: homicidal ideation, suicidal ideation Skin exam: PRESENT: mottled - Slight mottling onm knees, improved. Laboratory/Radiographs Laboratory Results: 02/23/20 06:30 02/23/20 02:44 02/22/20 02/22/20 02/22/20 13:00 14:10 16:10 WBC RBC Hgb Hct MCV MCH MCHC RDW Plt Count Seg Neutrophils % Sodium Potassium Chloride Carbon Dioxide Anion Gap BUN Creatinine Est GFR ( Amer) Glucose Lactic Acid 1.6 1.6 Calcium Magnesium Total Bilirubin AST Alkaline Phosphatase Total Protein Albumin Urine Color YELLOW Urine Appearance SLIGHTLY-CLOUDY Urine pH 5.0 Ur Specific [place] 1.030 Urine Protein 100 H Urine Glucose (UA) >=500 H Urine Ketones TRACE H Urine Blood NEGATIVE Urine RBC (Auto) 1 02/22/20 02/22/20 02/23/20 20:19 23:33 02:44 WBC 11.6 H 11.8 H RBC 4.03 L 3.85 L Hgb 12.5 L 11.9 L Hct 35.0 L 33.5 L MCV 87 87 MCH 31.1 30.8 MCHC 35.8 35.4 RDW 13.4 13.1 Plt Count 39 L 36 L Seg Neutrophils % 75.9 74.0 Sodium 136.7 L Potassium 4.9 D Chloride 106 Carbon Dioxide 21 L Anion Gap 10 BUN 18 Creatinine 1.24 Est GFR ( Amer) > 60 Glucose 217 H Lactic Acid Calcium 8.6 Magnesium 1.7 Total Bilirubin 0.9 AST 68 H Alkaline Phosphatase 84 Total Protein 6.5 Albumin 3.6 Urine Color Urine Appearance Urine pH Ur Specific [place] Urine Protein Urine Glucose (UA) Urine Ketones Urine Blood Urine RBC (Auto) 02/23/20 02/23/20 02:44 06:30 WBC 11.7 H RBC 4.01 L Hgb 12.4 L Hct 35.3 L MCV 88 MCH 30.8 MCHC 35.1 RDW 13.7 Plt Count 43 L Seg Neutrophils % 72.7 Sodium 137.8 Potassium 4.9 Chloride 106 Carbon Dioxide 21 L Anion Gap 11 BUN 19 Creatinine 1.18 Est GFR ( Amer) > 60 Glucose 193 H Lactic Acid Calcium 8.5 Magnesium Total Bilirubin AST Alkaline Phosphatase Total Protein Albumin Urine Color Urine Appearance Urine pH Ur Specific [place] Urine Protein Urine Glucose (UA) Urine Ketones Urine Blood Urine RBC (Auto) 02/22/20 02/22/20 02/22/20 09:35 09:35 13:00 Creatine Kinase 67 CK-MB (CK-2) 1.89 Troponin I 0.027 0.438 02/22/20 02/22/20 02/23/20 21:09 23:33 02:44 Creatine Kinase CK-MB (CK-2) Troponin I 3.810 4.410 4.160 Impressions: Chest X-Ray 02/22/20 09:26 IMPRESSION: NO ACUTE RADIOGRAPHIC FINDING IN THE CHEST. Chest/Abdomen CTA 02/22/20 10:55 IMPRESSION: Large bilateral pulmonary emboli in the main pulmonary arteries as well as segmental and subsegmental branches. Evidence of right sided heart strain with right ventricular dilatation. No evidence of pulmonary infarction. All labs, radiographs, diagnostic studies and EKGs were personally reviewed: Yes In addition, reports of radiographic and diagnostic studies were read: Yes Assessment and Plan - Diagnosis (1) Saddle pulmonary embolus Qualifiers: Chronicity: acute Acute cor pulmonale presence: with acute cor pulmonale Qualified Code(s): I26.02 - Saddle embolus of pulmonary artery with acute cor pulmonale Is this a current diagnosis for this admission?: Yes Plan: Changed to argatroban for PLT count 36. Probably consumptive. Checking HIT labs (2) Dehydration Is this a current diagnosis for this admission?: Yes Plan: Improved (3) Diabetes mellitus type 2 with complications Is this a current diagnosis for this admission?: Yes Plan: Better control. (4) Hypertension Qualifiers: Hypertension type: essential hypertension Qualified Code(s): I10 - Essential (primary) hypertension Is this a current diagnosis for this admission?: Yes Plan: Controlled with fewer medications due to PE. Plan Summary: Stable for transfer to [facility] [place]. Suazo to see tomorrow for low PLT count. Critical Time Critical Time (minutes): 35 Level of Care: ICU Anticipated discharge: Home Anticipated DC Timeframe: within 72 hours -: 1. The care of a critical patient is a dynamic process. This note is a distribution sales representative synopsis but static in nature. The timeframe for treatments given in order is not necessarily the actual time these treatments may have been done. 2. This patient requires critical care secondary to ongoing requirements for therapy not offered or safe outside the critical care environment. Transfer to a lower level of care will result in altered life or limb morbidity and mor tality. 3. Multidisciplinary rounds completed. 4. ABCDE bundle addressed.
[2020-02-23] MEDS: MORPHINE SULFATE 10 MG/ML INJ IV PRN (18:50)
[2020-02-23] MEDS: NORMAL SALINE 250 ML with ARGATROBAN 250 MG IV PRN ×2 (21:12)
[2020-02-23] MEDS: ATORVASTATIN CALCIUM 10 MG TABLET PO SCH (21:25)
[2020-02-23] MEDS: INSULIN GLARGINE,HUM.REC.ANLOG 1,000 UNIT/10 ML VIAL SUBCUT SCH (21:26)
[2020-02-23] MEDS: RINGERS SOLUTION,LACTATED 1,000 ML IV PRN (21:45)
[2020-02-23] MEDS: METOPROLOL SUCCINATE 25 MG TAB.SR.24H PO SCH (22:02)
[2020-02-24] MEDS: ONDANSETRON HCL INJ/PF 4 MG/2 ML SDV IV PRN ×2 (01:38→21:50)
[2020-02-24 04:43] LABS: ABSOLUTE BASOPHILS # (AUTO) 0.2 10^3/uL (0.0-0.2); ABSOLUTE EOSINOPHILS # (AUTO) 0.2 10^3/uL (0.0-0.6); ABSOLUTE LYMPHOCYTES (AUTO) 2.6 10^3/uL (0.5-4.7); ABSOLUTE NEUT (AUTO) 8.9 10^3/uL (1.7-8.2); BASOPHILS % (AUTO) 1.2 % (0-2); EOSINOPHILS % (AUTO) 1.3 % (0-6); HEMATOCRIT 34.4 % (37.9-51.0); HEMOGLOBIN 12.1 g/dL (13.5-17.0); LYMPHOCYTES % (AUTO) 20.2 % (13-45); MEAN CORPUSCULAR HEMOGLOBIN 30.8 pg (27.0-33.4); MEAN CORPUSCULAR HGB CONC 35.1 g/dL (32.0-36.0); MEAN CORPUSCULAR VOLUME 88 fl (80-97); MONOCYTES % (AUTO) 7.6 % (3-13); RED BLOOD COUNT 3.92 10^6/uL (4.35-5.55); RED CELL DISTRIBUTION WIDTH 13.3 % (11.5-14.0); SEGMENTED NEUTROPHILS % (AUTO) 69.7 % (42-78); TOTAL CELLS COUNTED % (AUTO) 100 %; WHITE BLOOD COUNT 12.7 10^3/uL (4.0-10.5)
[2020-02-24 04:50] LABS: PLATELET COUNT 56 10^3/uL (150-450)
[2020-02-24 04:58] LABS: ANION GAP 13 (5-19); BLOOD UREA NITROGEN 20 mg/dL (7-20); CALCIUM 8.9 mg/dL (8.4-10.2); CARBON DIOXIDE 22 mmol/L (22-30); CHLORIDE 102 mmol/L (98-107); GLUCOSE 138 mg/dL (75-110); POTASSIUM 4.6 mmol/L (3.6-5.0)
[2020-02-24] MEDS: CLINDAMYCIN HCL 150 MG CAPSULE PO SCH ×3 (06:40→18:02)
[2020-02-24] MEDS: INSULIN REG, HUMAN 100 UNIT/ML 3 ML VIAL (PYX) SUBCUT SCH ×4 (08:31→21:48)
--- NOTE | 2020-02-24 08:32 | RADIOLOGY REPORT (SQ) ---
EXAM DESCRIPTION: CHEST SINGLE VIEW IMAGES COMPLETED DATE/TIME: 02/24/2020 7:04 am REASON FOR STUDY: congestion COMPARISON: 02/22/2020 EXAM PARAMETERS: NUMBER OF VIEWS: One view. TECHNIQUE: Single frontal radiographic view of the chest acquired. RADIATION DOSE: NA LIMITATIONS: None. FINDINGS: LUNGS AND PLEURA: Increased right upper lobe airspace disease compatible with pneumonia. No significant effusion. No pneumothorax. MEDIASTINUM AND HILAR STRUCTURES: No masses. Contour normal. HEART AND VASCULAR STRUCTURES: Heart normal in size. Normal vasculature. BONES: No acute findings. HARDWARE: None in the chest. OTHER: No other significant finding. IMPRESSION: Right upper lobe pneumonia. TECHNICAL DOCUMENTATION: JOB ID: [id number] 2010 [employer]- All Rights Reserved Reading location - IP/workstation name: [email or web address]
--- NOTE | 2020-02-24 09:31 | PDOC CRITICAL CARE PROG REPORT ---
General Date:: 02/24/20 Hospital Day:: 2 Resuscitation Status: Full Code Events in the past 12 to 24 Hours:: To changed to PO anticoagulant. Get OOB. Review of systems relevant to events:: Pulmonary, CV Reason for ICU Addmission:: Large saddle PE with R heart strain. - Medications: Medications reviewed and adjusted accordingly: Yes Vasopressors:: None Sedation:: None Physical Exam Vital Signs: Temp Pulse Resp BP Pulse Ox 98.0 F 133 H 20 118/84 91 L 02/24/20 08:39 02/24/20 08:00 02/24/20 07:47 02/24/20 07:47 02/24/20 07:47 Intake & Output 02/23/20 02/24/20 02/25/20 06:59 06:59 06:59 Intake Total 2279 1550 125 Output Total 200 1395 150 Balance 2079 155 -25 Weight 93.3 kg 94.9 kg Weight/Height Weight 94.9 kg Height 6 ft 4 in General appearance: PRESENT: no acute distress, cooperative Head exam: PRESENT: atraumatic, normocephalic Eye exam: PRESENT: conjunctiva pink, EOMI, PERRLA. ABSENT: scleral icterus Ear exam: PRESENT: normal external ear exam Mouth exam: PRESENT: moist, tongue midline Respiratory exam: PRESENT: clear to auscultation violette. ABSENT: rales, rhonchi, wheezes Cardiovascular exam: PRESENT: tachycardia Pulses: PRESENT: normal dorsalis pedis pul Vascular exam: PRESENT: normal capillary refill GI/Abdominal exam: PRESENT: normal bowel sounds, soft. ABSENT: distended, guarding, mass, organolmegaly, rebound, tenderness Rectal exam: PRESENT: deferred Extremities exam: PRESENT: full ROM. ABSENT: calf tenderness, clubbing, pedal edema Musculoskeletal exam: PRESENT: normal inspection Neurological exam: PRESENT: alert, awake, oriented to person, oriented to place, oriented to time, oriented to situation, CN II-XII grossly intact. ABSENT: motor sensory deficit Psychiatric exam: PRESENT: appropriate affect, normal mood. ABSENT: homicidal ideation, suicidal ideation Skin exam: PRESENT: dry, intact, warm. ABSENT: cyanosis, rash Laboratory/Radiographs Laboratory Results: 02/24/20 04:14 02/24/20 04:14 02/24/20 02/24/20 04:14 04:14 WBC 12.7 H RBC 3.92 L Hgb 12.1 L Hct 34.4 L MCV 88 MCH 30.8 MCHC 35.1 RDW 13.3 Plt Count 56 L Seg Neutrophils % 69.7 Sodium 137.2 Potassium 4.6 Chloride 102 Carbon Dioxide 22 Anion Gap 13 BUN 20 Creatinine 1.22 Est GFR ( Amer) > 60 Glucose 138 H Calcium 8.9 02/22/20 02/22/20 02/22/20 09:35 09:35 13:00 Creatine Kinase 67 CK-MB (CK-2) 1.89 Troponin I 0.027 0.438 02/22/20 02/22/20 02/23/20 21:09 23:33 02:44 Creatine Kinase CK-MB (CK-2) Troponin I 3.810 4.410 4.160 Impressions: Chest/Abdomen CTA 02/22/20 10:55 IMPRESSION: Large bilateral pulmonary emboli in the main pulmonary arteries as well as segmental and subsegmental branches. Evidence of right sided heart strain with right ventricular dilatation. No evidence of pulmonary infarction. Chest X-Ray 02/24/20 05:00 IMPRESSION: Right upper lobe pneumonia. All labs, radiographs, diagnostic studies and EKGs were personally reviewed: Yes In addition, reports of radiographic and diagnostic studies were read: Yes Assessment and Plan - Diagnosis (1) Saddle pulmonary embolus Qualifiers: Chronicity: acute Acute cor pulmonale presence: with acute cor pulmonale Qualified Code(s): I26.02 - Saddle embolus of pulmonary artery with acute cor pulmonale Is this a current diagnosis for this admission?: Yes Plan: OK to change to oral anticoagulant. Get OOB. Home soon. (2) Dehydration Is this a current diagnosis for this admission?: Yes Plan: Resolved (3) Diabetes mellitus type 2 with complications Is this a current diagnosis for this admission?: Yes Plan: Controlled (4) Hypertension Qualifiers: Hypertension type: essential hypertension Qualified Code(s): I10 - Essential (primary) hypertension Is this a current diagnosis for this admission?: Yes Plan: With PE BP is somewhat lower. (5) Tachycardia Is this a current diagnosis for this admission?: Yes Plan: As a manifestation of PE. Now we may start to replace metoprolol for better HR control. Plan Summary: Awaiting floor bed. Home soon. Critical Time Critical Time (minutes): 25 Level of Care: IMCU Anticipated discharge: Home Anticipated DC Timeframe: within 72 hours -: 1. The care of a critical patient is a dynamic process. This note is a senior account representative synopsis but static in nature. The timeframe for treatments given in order is not necessarily the actual time these treatments may have been done. 2. This patient requires critical care secondary to ongoing requirements for therapy not offered or safe outside the critical care environment. Transfer to a lower level of care will result in altered life or limb morbidity and mortality. 3. Multidisciplinary rounds completed. 4. ABCDE bundle addressed.
[2020-02-24] MEDS: RIVAROXABAN 15 MG TABLET PO SCH ×2 (10:25→18:02)
[2020-02-24] MEDS: FAMOTIDINE 20 MG TABLET PO SCH ×2 (10:25→21:47)
[2020-02-24] MEDS: METOPROLOL SUCCINATE 25 MG TAB.SR.24H PO SCH ×2 (10:25→21:47)
--- NOTE | 2020-02-24 10:34 | PDOC CONSULTATION ---
Consultation Consult Date: 02/24/20 Provider Consulted: BRITANY KWAN Consult reason:: Hematology/Oncology consultation was requested for patient with recent PE and thrombocytopenia. History of Present Illness Admission Date/PCP: 02/22/20 16:02 GUANAKO ALVARADO NP History of Present Illness: OSEAS AYERS III is a 59 year old male who states that he was admitted a few weeks ago for acute renal failure of unknown cause. He did receive at least 1 dialysis treatment, but then his renal failure resolved and his kidney function has been quite good since that time. However, last week he presented with dyspnea and chest pain and thought to have pneumonia. CT showed a saddle PE and he was started on IV heparin. He did have a femoral dialysis catheter placed on prior admission and this has since been removed. His PLT count on last admission was normal. However, on admission this time, PLT were only 36. Because of possible HIT concerns, patient was changed to argatroban and has been stable on this medication. Today, he states that he still has dyspnea with minimal exertion. He is very anxious and worried about the blood clot and his prognosis. No appetite, but no other concerns. 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 Denies: Pacemaker, Tonsillectomy Social History Smoking Status: Former Smoker Frequency of Alcohol Use: None Hx Recreational Drug Use: No Hx Prescription Drug Abuse: No - Advance Directive Resuscitation Status: Full Code Family History Family History: None, CAD Parental Family History Reviewed: Yes Children Family History Reviewed: No Sibling(s) Family History Reviewed.: Yes Medication/Allergy Home Medications: Lisinopril [Prinivil 20 mg Tablet] 20 mg PO DAILY 05/31/12 Insulin Glargine,Hum.rec.anlog [Basaglar Kwikpen U-100] 60 unit SQ QHS 02/09/20 Lovastatin 40 mg PO DAILY 02/09/20 Metoprolol Succinate [Toprol Xl 25 mg Tab.sr] 25 mg PO Q12 02/09/20 Clindamycin HCl [Cleocin 150 mg Capsule] 150 mg PO Q6 02/22/20 Insulin Aspart [Novolog Flexpen] 0 unit SUBCUT .SLD SCALE 02/22/20 Allergies/Adverse Reactions: No Known Allergies Allergy (Verified 02/09/20 11:21) Review of Systems Constitutional: ABSENT: fever(s), headache(s) Eyes: ABSENT: visual disturbances Ears: ABSENT: hearing changes Cardiovascular: PRESENT: as per HPI Respiratory: PRESENT: as per HPI Gastrointestinal: ABSENT: constipation, nausea Genitourinary: ABSENT: dysuria Integumentary: ABSENT: pruritus Neurological: ABSENT: dizziness, memory loss Psychiatric: PRESENT: anxiety Hematologic/Lymphatic: ABSENT: easy bleeding Physical Exam Vital Signs: Temp Pulse Resp BP Pulse Ox 98.0 F 133 H 20 118/84 91 L 02/24/20 08:39 02/24/20 08:00 02/24/20 07:47 02/24/20 07:47 02/24/20 07:47 Intake & Output 02/23/20 02/24/20 02/25/20 06:59 06:59 06:59 Intake Total 2279 1550 125 Output Total 200 1395 150 Balance 2079 155 -25 Weight 93.3 kg 94.9 kg General appearance: PRESENT: no acute distress Head exam: PRESENT: normocephalic Eye exam: PRESENT: EOMI Mouth exam: PRESENT: moist, tongue midline Neck exam: ABSENT: lymphadenopathy, tenderness Respiratory exam: PRESENT: decreased breath sounds Cardiovascular exam: PRESENT: RRR, tachycardia GI/Abdominal exam: PRESENT: soft. ABSENT: organolmegaly, tenderness Extremities exam: ABSENT: pedal edema Musculoskeletal exam: PRESENT: normal inspection. ABSENT: ambulatory Neurological exam: PRESENT: alert, awake, oriented to person, oriented to place, oriented to time, oriented to situation Psychiatric exam: PRESENT: appropriate affect Skin exam: PRESENT: normal color Results Laboratory Results: 02/24/20 04:14 02/24/20 04:14 02/24/20 02/24/20 04:14 04:14 WBC 12.7 H RBC 3.92 L Hgb 12.1 L Hct 34.4 L MCV 88 MCH 30.8 MCHC 35.1 RDW 13.3 Plt Count 56 L Seg Neutrophils % 69.7 Sodium 137.2 Potassium 4.6 Chloride 102 Carbon Dioxide 22 Anion Gap 13 BUN 20 Creatinine 1.22 Est GFR ( Amer) > 60 Glucose 138 H Calcium 8.9 02/22/20 02/22/20 02/22/20 09:35 09:35 13:00 Creatine Kinase 67 CK-MB (CK-2) 1.89 Troponin I 0.027 0.438 02/22/20 02/22/20 02/23/20 21:09 23:33 02:44 Creatine Kinase CK-MB (CK-2) Troponin I 3.810 4.410 4.160 Impressions: Chest/Abdomen CTA 02/22/20 10:55 IMPRESSION: Large bilateral pulmonary emboli in the main pulmonary arteries as well as segmental and subsegmental branches. Evidence of right sided heart strain with right ventricular dilatation. No evidence of pulmonary infarction. Chest X-Ray 02/24/20 05:00 IMPRESSION: Right upper lobe pneumonia. Status: Image reviewed by me Assessment & Plan - Diagnosis (1) Thrombocytopenia Is this a current diagnosis for this admission?: Yes Plan: Patient did have heparin during previous admission so HIT is a possibility. Although consumption due to the PE is also a possibility. I reviewed the peripheral blood smear and there is no evidence of TTP. ITP is also a possibility. His PLT are improving and are now >50. It should be safe at this point to change from Argatroban to a newer oral agent, either Eliquis or Xarelto. His Kidney function remains normal. (2) Saddle pulmonary embolus Qualifiers: Chronicity: acute Acute cor pulmonale presence: with acute cor pulmonale Qualified Code(s): I26.02 - Saddle embolus of pulmonary artery with acute cor pulmonale Is this a current diagnosis for this admission?: Yes Plan: May be due to the catheter placement or recent hospitalization. I would recommend continuing anticoagulation for 6 months as outpatient. I will be happy to follow him over that time period. Xarelto 15 mg po BID x 21 days then 20 mg daily. Or, Eliquis 5 mg BID. Argatroban can be stopped about a hour after first dose of oral medication has been given. - Plan Summary Plan Summary: Patient was discussed at length with Dr. Morocho. Please call me with any concerns.
[2020-02-24] MEDS: MORPHINE SULFATE 10 MG/ML INJ IV PRN ×2 (12:04→21:50)
[2020-02-24] MEDS: RINGERS SOLUTION,LACTATED 1,000 ML IV PRN (13:20)
[2020-02-24] MEDS: ATORVASTATIN CALCIUM 10 MG TABLET PO SCH (21:46)
[2020-02-24] MEDS: INSULIN GLARGINE,HUM.REC.ANLOG 1,000 UNIT/10 ML VIAL SUBCUT SCH (21:48)
[2020-02-24] MEDS ORDERED: PROMETHAZINE HCL INJ 25 MG/1 ML VIAL IV ONE (22:50)
[2020-02-24] MEDS ORDERED: PROMETHAZINE HCL INJ 25 MG/1 ML VIAL ONE (22:51)
[2020-02-24] MEDS ORDERED: NALOXONE HCL INJ/PF 0.4 MG/1 ML SDV ONE (23:06)
[2020-02-24] MEDS ORDERED: EPINEPHRINE INJ 1 MG/10 ML DISP.SYRIN ONE (23:52)
--- NOTE | 2020-02-25 00:34 | Progress Note ---
Provider Note Provider Note: 0002 - Despite resuscitation efforts patient asystole on the padded products finisher confirmed in 2 leads. No audible heart tones and no palpable pulses. There are no spontaneous respiratory efforts and no visible signs of life. The patients time of is 0002.
--- NOTE | 2020-02-25 00:46 | Progress Note ---
Provider Note Provider Note: 02/24/2020 2300 Called to room by nurse patient pale and diaphoretic complaining of nausea bilateral lower extremities mottled in color. Patient with decreased respiratory efforts sats maintained mid 90's BVM used to assist with respiratory efforts. at 2308 patient became bradycardic abd lost his pulse. CPR and ACLS protocol initiated. The patient was intubated with a 7.5 ETT and adequate CPR performed after rounds of epi and cpr patient regained ROSC. At 2322 patients heart rate began slowing and loss of pulse again. CPR started and again regained ROSC. The patients was called and asked to come to bedside. At 2338 the heart began slowing and once again became pulse less and cpr performed with at bedside. I explained to her that at this point there was little we could do and her husbands chance of survival was very low. ROSC obtained and again became bradycardic with loss of pulse at 2350. CPR once again performed and at this time the decided to stop the efforts and at 0002 the patient was pronounced . Please refer to the code sheet for a complete list of medications given.
--- NOTE | 2020-02-25 03:02 | Operative Report ---
Bedside Procedure - History of Present Illness Indication for Procedure: resp failure Provider: HENRIETTA MOYA - Intubation Orotracheal Intubation method: Orotracheal Blade type: Wang Blade size: 4 Equipment used: Glidescope ETT size: 7.5 Intubation Complications: No complications
--- NOTE | 2020-02-25 03:11 | Death Summary ---
Summary Date : 02/25/20 Time of :: 00:05 Autopsy: No Resuscitation Status: Full Code - Final Diagnosis (1) Saddle pulmonary embolus Is this a current diagnosis for this admission?: Yes (2) Thrombocytopenia Is this a current diagnosis for this admission?: No (3) ARF (acute renal failure) Is this a current diagnosis for this admission?: No
[2020-02-25 04:10] VITALS: BP 166/118
[2020-02-25] MEDS: CLINDAMYCIN HCL 150 MG CAPSULE PO SCH (05:30)
[2020-02-25 08:49] LABS: PROSTATE SPECIFIC ANTIGEN 6.4 ng/mL (0.0-4.0); PSA % FREE 16.1 % (.); PSA FREE 1.03 ng/mL
--- NOTE | 2020-02-25 09:57 | EKG REPORT ---
SEVERITY:- ABNORMAL ECG - SINUS TACHYCARDIA PROMINENT P WAVES, NONDIAGNOSTIC RIGHT BUNDLE BRANCH BLOCK PROBABLE INFERIOR FL : Confirmed by: Elisa Marcus 25-Feb-2020 09:56:46
== END 2020-02-25 00:02 | DRG 208 ==
LOC: ER 09:17 → EH 16:02 → ICU 17:00
PROVIDERS: ADMIT Anesthesiology; ATTEND Anesthesiology
PROC: 0BH17EZ Insertion of Endotracheal Airway into Trachea, Via Natural or Artificial Opening (ICD-10-PCS; principal; 2020-02-25)
PROC: 5A1935Z Respiratory Ventilation, Less than 24 Consecutive Hours (ICD-10-PCS; 2020-02-25)
DX: I26.02 Saddle embolus of pulmonary artery with acute cor pulmonale (principal); J96.00 Acute respiratory failure, unspecified whether with hypoxia or hypercapnia; E11.9 Type 2 diabetes mellitus without complications; K21.9 Gastro-esophageal reflux disease without esophagitis; I95.9 Hypotension, unspecified; E86.0 Dehydration; I10 Essential (primary) hypertension; E78.5 Hyperlipidemia, unspecified; Z87.891 Personal history of nicotine dependence; Z79.899 Other long term (current) drug therapy; Z79.4 Long term (current) use of insulin
CPT/HCPCS: 31500; 36415; 71045; 71275; 80048; 80053; 81001; 82378; 82550; 82553; 82803; 82962; 83605; 83735; 84154; 84484; 85025; 85384; 85610; 85730; 87040; 87070; 92950; 93005; 93010; 93306; 94002; 96361; 96365; 96366; 96368; 96375; 99291; J0171; J0692; J0883; J1644; J1815; J2001; J2270; J2405; J2550; J3490; J7030; J7050; J7120